=== PATIENT | female | born 1955 | race Caucasian/White ===

== ENCOUNTER → 2019-12-27 16:34 | Outpatient (CLI) | payer BC, SELFPAY ==
--- NOTE | ~2019-12-27 | XR_ITS ---
EXAMINATION: XR sacroiliac joints min 3V DATE: 12/27/2019 16:59 INDICATION: Sacroiliitis with left sacroiliac joint pain TECHNIQUE: AP and left and right oblique views of the sacroiliac joints were obtained. COMPARISON: Lumbar spine radiographs dated 01/22/2018 FINDINGS: Alignment is normal. No fracture. Sacral arches are intact. Bilateral sacroiliac joint spaces remain normal and symmetric. No erosions or subarticular sclerosis to suggest an inflammatory sacroiliitis. Osteitis pubis. Mild to moderate lower lumbar spondylosis. Mild bilateral hip osteoarthritis. IMPRESSION: 1. Normal bilateral sacroiliac joints. Reviewed, dictated and finalized at location A.
== END ==
PROVIDERS: Visit Provider Nurse Practitioner Family
DX: M46.1 Sacroiliitis, not elsewhere classified (principal)
CPT/HCPCS: 72202

== ENCOUNTER → 2021-02-24 13:55 | Outpatient (CLI) | payer BC, SELFPAY ==
--- NOTE | ~2021-02-24 | XR_ITS ---
XR knee LT 2V 02/24/2021 14:14 Indication: Left knee pain Procedure: 2 views left knee Comparison: 06/22/2017 Findings: There is mild-moderate osteoarthritis of the left knee. There is chondrocalcinosis. No frac ture, subluxation or dislocation. No significant joint effusion. Impression: 1: Mild-moderate osteoarthritis of the left knee. Reviewed, dictated and finalized at location B. Impression: 1: Mild-moderate osteoarthritis of the left knee.
--- NOTE | ~2021-02-24 | XR_ITS ---
XR knee RT 2V 02/24/2021 14:14 Indication: Right knee pain Procedure: 2 views right knee Comparison: 06/22/2017 Findings: There is moderate-severe tricompartment osteoarthritis of the right knee. No fracture, subl uxation or dislocation. No significant joint effusion. No foreign bodies. Impression: 1: Moderate-severe tricompartment osteoarthritis of the right knee. Reviewed, dictated and finalized at location B. Impression: 1: Moderate-severe tricompartment osteoarthritis of the right knee.
== END ==
PROVIDERS: PCP Internal Medicine; Visit Provider Nurse Practitioner Family
DX: M17.0 Bilateral primary osteoarthritis of knee (principal)
CPT/HCPCS: 73560

== ENCOUNTER → 2021-04-21 08:13 | Outpatient (CLI) | payer BC, SELFPAY ==
--- NOTE | ~2021-04-21 | MR_ITS ---
EXAMINATION: MR knee RT wo con DATE: 04/21/2021 12:08 INDICATION: Right knee pain. TECHNIQUE: Magnetic resonance imaging (MRI) of the right knee was performed without intravenous contr ast. Sequences included axial PD-weighted FS FSE, coronal PD-weighted FSE and PD-weighted FS FSE, sag ittal PD-weighted FSE, and sagittal T2-weighted FS FSE. COMPARISON: Right knee radiographs 02/24/2021 FINDINGS: Medial compartment: There is a complex tear involving posterior horn of medial meniscus. There is extensive partial thick ness cartilage loss of tibial condyle and femoral condyle. There is full-thickness cartilage loss of tibial condyle involving the central articular surface. There is full-thickness cartilage loss of fem oral condyle involving the central articular surface. Osteophytes are noted. Lateral compartment: Lateral meniscus is normal. There is partial-thickness cartilage loss of tibial condyle, deep at the central articular surface. There is partial-thickness cartilage loss of femoral condyle, deep at the central articular surface. Osteophytes are noted. Patellofemoral compartment: There is full-thickness cartilage loss of patellar lateral facet with mild subchondral edema signal i ntensity. There is full-thickness cartilage loss of lateral trochlea with mild subchondral edema-like marrow signal intensity. Osteophytes are noted. Ligaments and tendons: The anterior and posterior cruciate ligaments are normal. There are changes of prior sprains of media l collateral ligament and fibular collateral ligament characterized by increased signal intensity pro ximally. There is mild patellar tendinopathy. Fluid: There is a moderate-sized knee joint effusion. There is mild prepatellar and superficial infrapatella r bursitis. IMPRESSION: 1. Severe chondrosis of medial and patellofemoral compartments and moderate chondrosis of lateral com partment. 2. Tear of medial meniscus. 3. Moderate-sized knee joint effusion. Reviewed, dictated and finalized at location A. 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 Severe chondrosis of medial and patellofemoral compartments and moderate cho ndrosis of lateral compartment. 2. Tear of medial meniscus. 3. Moderate-sized knee joint effusion.
--- NOTE | ~2021-04-21 | MR_ITS ---
EXAMINATION: MR knee LT wo con DATE: 04/21/2021 12:17 INDICATION: Left knee pain. TECHNIQUE: Magnetic resonance imaging (MRI) of the left knee was performed without intravenous contra st. Sequences included axial PD-weighted FS FSE, coronal PD-weighted FSE and PD-weighted FS FSE, sagi ttal PD-weighted FSE, and sagittal T2-weighted FS FSE. COMPARISON: Left knee radiographs 02/24/2021 FINDINGS: Medial compartment: Medial meniscus is normal. There is shallow partial-thickness cartilage loss of tibial condyle, worst at the central articular surface. There is partial-thickness cartilage loss of femoral condyle, deep at the central articular surface. Marginal osteophytes are noted. Lateral compartment: Lateral meniscus is normal. There is shallow partial-thickness cartilage loss of tibial condyle. Ther e is partial-thickness cartilage loss of femoral condyle, deep at the central articular surface. Blaire inal osteophytes are noted. Patellofemoral compartment: There is full-thickness cartilage loss of patellar median ridge and lateral facet and partial thickne ss cartilage loss of medial facet. There is full-thickness cartilage loss of lateral trochlea with co rtical remodeling. Osteophytes are noted. Ligaments and tendons: The anterior and posterior cruciate ligaments are normal. Medial collateral ligament and lateral jah ateral ligament complex are normal. There is mild patellar tendinopathy. Fluid: There is a small knee joint effusion. There is mild prepatellar and superficial infrapatellar bursiti s. IMPRESSION: 1. Severe chondrosis of patellofemoral compartment and moderate chondrosis of medial and lateral comp artments. 2. Small knee joint effusion. Reviewed, dictated and finalized at location A. 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 Severe chondrosis of patellofemoral compartment and moderate chondrosis of m edial and lateral compartments. 2. Small knee joint effusion.
== END ==
PROVIDERS: PCP Internal Medicine; Visit Provider Nurse Practitioner Family
DX: M25.462 Effusion, left knee (principal); S83.241A Other tear of medial meniscus, current injury, right knee, initial encounter
CPT/HCPCS: 73721

== ENCOUNTER 2022-09-06 07:10 | Outpatient (CLI) | payer BC, MEDICARE, SELFPAY ==
--- NOTE | ~2022-09-06 | MR_ITS ---
EXAMINATION: MR lumbar spine wo con DATE: 09/06/2022 07:42 INDICATION: Low back pain radiating down the left leg. Lumbar radiculopathy. TECHNIQUE: Magnetic resonance imaging (MRI) of the lumbar spine was performed without intravenous con trast. Sequences included sagittal T2-weighted FSE, sagittal T2-weighted FS FSE, sagittal T1-weighted FSE, and axial T2-weighted FSE. COMPARISON: Lumbar spine radiographs 01/22/18 FINDINGS: There is 5 mm anterolisthesis of L4 on L5. Vertebral body heights are normal. There is mild ly decreased disc height at L2-L3, L3-L4, and L5-S1. There is ligamentum flavum hypertrophy at the di sc levels from L2-L3 through L4-L5. The distal spinal cord signal intensity is normal. The conus medu llaris is at L1. The following disc levels are specifically discussed: L1-L2: There is a right central protrusion. There is mild bilateral facet joint osteoarthritis. There is no neural foraminal stenosis. There is mild central canal stenosis. L2-L3: The disc is bulging and has an annular fissure. There is severe bilateral facet joint osteoart hritis. There is mild bilateral neural foraminal stenosis. There is mild central canal stenosis. L3-L4: The disc is bulging and has an annular fissure. There is severe bilateral facet joint osteoart hritis. There is moderate bilateral neural foraminal stenosis. There is mild central canal stenosis. L4-L5: The disc is bulging and has an annular fissure. There is severe bilateral facet joint osteoart hritis. There is moderate bilateral neural foraminal stenosis. There is severe central canal stenosis . L5-S1: The disc is bulging and has an annular fissure. There is moderate bilateral facet joint osteoa rthritis. There is mild bilateral neural foraminal stenosis. There is mild central canal stenosis. IMPRESSION: 1. Severe lumbar spondylosis. Reviewed, dictated and finalized at location A.
== END 2022-09-06 07:11 ==
LOC: MICIMG 07:12
PROVIDERS: PCP Internal Medicine; Visit Provider Nurse Practitioner Family
DX: M47.26 Other spondylosis with radiculopathy, lumbar region (principal)
CPT/HCPCS: 72148

== ENCOUNTER 2024-01-22 11:34 | Outpatient (CLI) | payer MEDICARE, BC, SELFPAY ==
--- NOTE | ~2024-01-22 | XR_ITS ---
Left Shoulder Technique: AP and axillary views were obtained. Clinical History: Pain Findings: No fracture or dislocation is seen. Osseous alignment is anatomic. The glenohumeral joint i s intact. There is mild to moderate AC joint degenerative change. There is mild amorphous calcificati on at the rotator cuff region. Impression: [id number] AC joint degenerative change. Mild amorphous calcification of the rotator cuff. This could reflect calcific tendinitis or degenerat deborah/post traumatic change. Reviewed, dictated and finalized at location . Impression: [id number] AC joint degenerative change. Mild amorphous calcification of the rotator cuff. This could reflect calcific t endinitis or degenerative/post traumatic change.
== END 2024-01-22 11:35 | disposition home or self-care (01) ==
PROVIDERS: PCP Internal Medicine; Visit Provider Nurse Practitioner Family
DX: M19.012 Primary osteoarthritis, left shoulder (principal)
CPT/HCPCS: 73030

== ENCOUNTER 2024-02-28 09:52 | Outpatient (CLI) | payer MEDICARE, BC, SELFPAY ==
--- NOTE | ~2024-02-28 | XR_ITS ---
EXAMINATION: XR chest 2V 02/28/2024 10:12 INDICATION: Shortness of breath PROCEDURE: 2 view chest COMPARISON: No prior studies for comparison. FINDINGS: The lungs are clear. There are calcified right hilar lymph nodes as well as right parenchym al nodules, consistent with chronic granulomatous disease. The cardiomediastinal silhouette is within normal limits. There are no pleural effusions. There is no pneumothorax suspected. IMPRESSION: 1: NO ACUTE CARDIOPULMONARY DISEASE. Reviewed, dictated and finalized at location B.
== END 2024-02-28 09:53 | disposition home or self-care (01) ==
PROVIDERS: PCP Internal Medicine; Visit Provider Internal Medicine
DX: R06.02 Shortness of breath (principal)
CPT/HCPCS: 71046

== ENCOUNTER 2024-08-28 10:16 | Outpatient (CLI) | payer MEDICARE, BC, SELFPAY ==
--- NOTE | ~2024-08-28 | XR_ITS ---
Right Knee Technique: AP and lateral views were obtained. Clinical History: Pain Findings: No fracture or dislocation is seen. Osseous alignment is anatomic. Joint advanced tricompar tmental osteoarthritis present.. Soft tissues are unremarkable. No joint effusion is seen. Impression: Advanced tricompartmental osteoarthritis. Reviewed, dictated and finalized at location . Impression: Advanced tricompartmental osteoarthritis.
== END 2024-08-28 10:17 | disposition home or self-care (01) ==
LOC: MICIMG 10:18
PROVIDERS: PCP Internal Medicine; Visit Provider Nurse Practitioner Family
DX: M17.11 Unilateral primary osteoarthritis, right knee (principal)
CPT/HCPCS: 73560

== ENCOUNTER 2024-10-08 13:36 | Emergency (ER) | payer MEDICARE, BC, SELFPAY ==
[2024-10-08 13:37] VITALS: BP 143/70; PULSE 80; RESP 16; TEMP 36.4; O2SAT 100
--- OUTSIDE RECORDS SUMMARY | 2024-10-08 13:43 | XMS_ITS | Referral Summary ---
Author Organization [facility] [address] [facility] Address [address] [place] [address] Care Team Providers Care [employer] Senior Manager Name Role Phone Eligio Rutledge MD Primary Care Provider Allergies Active Allergy Reactions Criticality Noted Date Comments Budesonide-Formoterol Anaphylaxis High 10/04/2013 Tetracycline Rash Medium Medications albuterol HFA (PROVENTIL HFA,VENTOLIN HFA,PROAIR HFA) 90 mcg/actuation inhaler Inhale 2 puffs every 4 (four) hours as needed for wheezing or shortness of breath 11/01/19 14 Active fluticasone propion-salmetero L (ADVAIR DISKUS) 500-50 mcg/dose diskus inhalerIndication s:Maintenance Therapy for Asthma Inhale 1 puff 2 (two) times a day Rinse mouth with water after use. Do not swallow. Active glipiZIDE (GLUCOTROL) 5 mg tabletIndications :type 2 diabetes mellitus Take 5 mg by mouth 2 (two) times a day before breakfast and lunch Active losartan (COZAAR) 50 mg tabletIndications :hypertension Take 50 mg by mouth nightly Active atorvastatin (LIPITOR) 10 mg tabletIndications :hyperlipidemia Take 10 mg by mouth 3 (three) times a week Active magnesium oxide (MAG-OX) 250 mg (150.8 mg elemental) tabletIndications :hypomagnesemia Take 250 mg by mouth nightly Active gabapentin (NEURONTIN) 600 mg tabletIndications :Neuropathic Pain Take 600 mg by mouth nightly Active albuterol 2.5 mg /3 mL (0.083 %) nebulizer solution Take 2.5 mg by nebulization every 4 (four) hours as needed for wheezing or shortness of breath 11/01/19 14 Active multivitamin capsuleIndication s:Vitamin Deficiency Prevention Take 1 capsule by mouth daily before breakfast Active cholecalciferol (Vitamin D3) 4,000 unit capsuleIndication s:Vitamin D Deficiency Take 4,000 Units by mouth daily before breakfast Active tiotropium bromide (SPIRIVA RESPIMAT) 2.5 mcg/actuation inhalerIndication s:Maintenance Therapy for Asthma Inhale 5 mcg 2 (two) times a day Active to-vx-QF-vit B-mpkac-ilii-zeax (Ocuvite Eye Plus Multi) 200-15-150 mcg tablet Take 1 tablet by mouth daily before breakfast 11/01/19 14 Active metFORMIN (GLUCOPHAGE) 1,000 mg tabletIndications :type 2 diabetes mellitus Take 1,000 mg by mouth 2 (two) times a day with meals 11/01/19 14 Active exenatide ER microspheres (Bydureon BCise) 2 mg/0.85 mL auto-injectorIndi cations:type 2 diabetes mellitus Inject 2 mg under the skin once a week Monday Active naproxen sodium 220 mg capsule Take 220 mg by mouth 2 (two) times a day as needed (pain) Active ondansetron ODT (ZOFRAN-ODT) 4 mg disintegrating tablet Take 1 tablet (4 mg total) by mouth every 8 (eight) hours as needed for nausea or vomiting 20 tablet 12/22/19 21 Active amoxicillin-clavu lanate (AUGMENTIN) 875-125 mg per tablet amoxicillin 875 mg-potassium clavulanate 125 mg tablet Active azithromycin (ZITHROMAX) 250 mg tablet azithromycin 250 mg tablet Active calcipotriene-bet amethasone (TACLONEX) ointment calcipotriene-beta methasone 0.005 %-0.064 % topical ointment Active cefdinir (OMNICEF) 300 mg capsule cefdinir 300 mg capsule Active cefuroxime (CEFTIN) 250 mg tablet cefuroxime axetil 250 mg tablet Active ciprofloxacin (CIPRO) 500 mg tablet ciprofloxacin 500 mg tablet Active cyclobenzaprine (FLEXERIL) 10 mg tablet cyclobenzaprine 10 mg tablet Active cycloSPORINE (Restasis) 0.05 % ophthalmic emulsion Restasis 0.05 % eye drops in a dropperette Active influenza quadrivalent (FLULAVAL,FLUARIX ) 60 mcg (15 mcg x 4)/0.5 mL syringe Afluria Quad (PF) 60 mcg (15 mcg x 4)/0.5 mL IM syringe ADM 0.5ML IM UTD Active fluocinonide 0.1 % cream fluocinonide 0.1 % topical cream Active hylan g-f 20 (Synvisc-One) 48 mg/6 mL syringe Synvisc-One 48 mg/6 mL intra-articular syringe Active naproxen (NAPROSYN) 500 mg tablet naproxen 500 mg tablet Active neomycin-polymyxi n-HC (CORTISPORIN) otic solution neomycin-polymyxin -hydrocort 3.5 mg/mL-10,000 unit/mL-1 % ear solution Active nitrofurantoin monohydrate (MACROBID) 100 mg capsule nitrofurantoin monohydrate/macroc rystals 100 mg capsule TAKE ONE CAPSULE TWICE DAILY FOR 7 DAYS. Active ondansetron (ZOFRAN) 4 mg tablet ondansetron HCl 4 mg tablet Active oxyCODONE-acetami nophen (PERCOCET) 5-325 mg per tablet oxycodone-acetamin ophen 5 mg-325 mg tablet Active predniSONE (DELTASONE) 10 mg tablet prednisone 10 mg tablet Active Active Problems Problem Noted Date Diagnosed Date Sebaceous cyst of breast, left 12/01/2020 Skin infection 12/01/2020 Social History Tobacco Use Types Packs/Day Years Used Date Smoking Tobacco: Former Cigarettes Q uit: 1994 Smokeless Tobacco: Never AUDIT-C Answer Date Recorded Q1: How often do you have a drink containing alc ohol? Monthly or less 12/21/2020 Q2: How many drinks containi ng alcohol do you have on a typical day when you are drinking? 1 or 2 12/21/2020 Q3: How often do you have si x or more drinks on one occasion? 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 Gender Identity Female 11/24/2020 9:11 AM CDT Sexual Orientation Straight 11/24/2020 9: 11 AM CDT Last Filed Vital Signs Vital Sign Reading Time Taken Comments Blood Pressure 140/68 12/21/2020 3:00 PM CDT Pulse 83 12/21/2020 3:00 PM CDT Temperature 36.3 C (97.3 F) 12/21/2020 2:30 PM CDT Respiratory Rate 17 12/21/2020 3:00 PM CDT Oxygen Saturation 92% 12/21/2020 3:00 PM CDT Inhaled Oxygen Concentration - - Weight 117.9 kg (259 lb 14.8 oz) 12/25/2020 8:17 AM CDT Height 170.2 cm (5' 7) 12/25/2020 8:17 AM CDT Body Mass Index 40.71 12/25/2020 8:17 AM CDT Plan of Treatment Not on file Procedures Procedure Name Priority Date/Time Associated Diagnosis Comments SCREENING MAMMOGRAM BILATERAL W YWA Schedule Routine, Read Routine (OP Routine) 06/05/2024 11:38 AM BAR PORTER Screening mammogram, encounter for from Last 3 Months or Most Recently Relevant to Health Maintenance Results * Screening Mammogram Bilateral W Yaw (06/05/2024 11:38 AM BAR PORTER) Anatomical Region Laterality Modality Breast Bilateral Mammography Narrative 06/05/2024 12:08 PM BAR PORTER Mammogram Technique: Bilateral Digital Breast Tomosynthesis, Bilateral C-view 2D Screening mammogram. Views obtained: bilateral craniocaudal and bilateral mediolateral oblique. Computer Aided Detection was performed. Mammogram Findings: The present examination has been compared to prior imaging studies performed at [facility] on 10/15/2020, 12/13/2021 and 04/03/2023. The breasts are almost entirely fatty. There is no suspicious abnormality in either breast. Impression: There is no mammographic evidence of malignancy. Annual screening mammography is recommended. OVERALL FINAL ASSESSMENT: BI-RADS CATEGORY 1: Negative. Procedure Note Jojo Dean MD - 06/05/2024 Mammogram Technique: Bilateral Digital Breast Tomosynthesis, Bilateral C-view 2D Screening mammogram. Views obtained: bilateral craniocaudal and bilateral mediolateral oblique. Computer Aided Detection was performed. Mammogram Findings: The present examination has been compared to prior imaging studies performed at [facility] on 10/15/2020, 12/13/2021 and 04/03/2023. The breasts are almost entirely fatty. There is no suspicious abnormality in either breast. Impression: There is no mammographic evidence of malignancy. Annual screening mammography is recommended. OVERALL FINAL ASSESSMENT: BI-RADS CATEGORY 1: Negative. 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
--- OUTSIDE RECORDS SUMMARY | 2024-10-08 13:43 | XMS_ITS | Clinical Summary ---
Author Organization [facility] [employer] Address [address] [place] [address] Care Team Providers Care Import Coordination And Production Head Name Role Phone Benita Maxwell MD Unavailable [phone] Eligio Rutledge MD Primary Care Provider [phone] Source Comments [facility],non-owned Affiliates and Associated Physician Practices is amultiple site organization consisting of ambulatory clinics and hospital sitesin [place], [place], [place] and [place]. This disclosure is being madepursuant to the Care Everywhere program and may not contain all information available regarding this patient. Last updated 18.[facility] [employer] Allergies Active Allergy Reactions Criticality Noted Date Comments Budesonide-Formoterol Fumarate 03/22 Tetracycline 03/22/2012 Medications * Be aware that medications may not be up to date on this document. Alwaysverify current medications with the patient. fluticasone-salme terol (ADVAIR DISKUS) 500-50 MCG/DOSE inhalerIndication s:Type II or unspecified type diabetes mellitus without mention of complication, uncontrolled Inhale 1 Puff by mouth 2 times daily. Active pirbuterol (MAXAIR AUTOHALER) 200 MCG/INH inhalerIndication s:Type II or unspecified type diabetes mellitus without mention of complication, uncontrolled Inhale 2 Puffs by mouth every 6 hours as needed. Active SIMVASTATIN POIndications:Typ e II or unspecified type diabetes mellitus without mention of complication, uncontrolled Take by mouth. Ac tive losartan (COZAAR) 25 MG tablet Take 1 Tab by mouth once daily. 90 Tab 1 3 Active glipiZIDE (GLUCOTROL) 5 MG tabletIndications :Type II or unspecified type diabetes mellitus without mention of complication, not stated as uncontrolled (HCC) Take 1 Tab by mouth 2 times daily,before breakfast and supper. 180 Tab 3 3 Active ASCENSIA CONTOUR TEST STRIP test strip USE TO TEST BLOOD SUGAR ONE TIME DAILY 100 Strip 0 3 Active Active Problems Problem Noted Date Diagnosed Date Hypercholesteremia 06/20/2012 HTN (hypertension) 06/20/2012 Type II or unspecified type diabetes mellitus without mention of complication, uncontrolled 03/22/2012 Family History Medical History Relation Name Comments Diabetes Brother Diabetes Mother [place]<55(male) Neg Hx [place]<65(female) Neg Hx Relation Name Status Comments Brother Mother Social History Tobacco Use Types Packs/Day Years Used Date Smoking Tobacco: Never Smokeless Tobacco: Never Alcohol Use Standard Drinks/Week Comments No 0 (1 standard drink = 0.6 oz pur e alcohol) Comments No Sex and Gender Information Value Date Recorded Sex Assigned at Not on file 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 Gender Identity Not on file Sexual Orientation Not on file Last Filed Vital Signs Vital Sign Reading Time Taken Comments Blood Pressure 134/82 12/25/2012 8:17 AM CDT Pulse 68 12/25/2012 8:17 AM CDT Temperature - - Respiratory Rate 17 12/25/2012 8:17 AM CDT Oxygen Saturation 97% 12/25/2012 8:17 AM CDT Inhaled Oxygen Concentration - - Weight 128.4 kg (283 lb) 12/25/2012 8:17 AM CDT Height 168.9 cm (5' 6.5) 12/25/2012 8:17 AM CDT Body Mass Index 44.99 12/25/2012 8:17 AM CDT Plan of Treatment Health Maintenance Due Date Last Done Comments BONE DENSITY TESTING 1955 COLOGUARD (AGES 45-75) - COLON CA SCREENING 1956 COLON MONITORING 1956 COLONOSCOPY - COLON CA SCREENING 1956 CT COLONOGRAPHY - COLON CA SCREENING 1955 Colorectal Cancer Screening 1955 FIT - COLON CA SCREENING 1956 FLEX SIG - COLON CA SCREENING 1955 MAMMOGRAM 1956 HEPATITIS C SCREENING 08/23/1974 DTAP/TDAP/TD VACCINES (1 - Tdap) 08/28/1975 PNEUMOCOCCAL VACCINE 50+ (1 of 1 - PCV) 2006 ZOSTER VACCINE (1 of 2) 2006 DIABETES-HGB A1C 06/27/2013 12/25/2012, , 07/02/2012, Additional history exists DIABETES-SERUM CREATININE 09/25/20132012, 07/02/2012, 03/23/2012 DIABETES-FOOT EXAM WITH MONOFILAMENT 12/25/2013 12/25/2012, 09/25/2012, 06/20/2012 Respiratory Syncytial Virus (RSV) Vaccine Pt: or over 60 yrs (1 - Risk 60-74 years 1-dose series) 2016 COVID-19 VACCINE ( - season) 2024 DEPRESSION SCREENING 05/08/2024 DIABETES - URINE PROTEIN SCREENING 05/08/2024 03/23/2012 INFLUENZA VACCINE (Season Ended) 2025 HEPATITIS B VACCINE Aged Out No longe r eligible based on patient's age to complete this topic HIB VACCINE Aged Out No longer eligi ble based on patient's age to complete this topic HPV VACCINE Aged Out No longer eligi ble based on patient's age to complete this topic MENINGOCOCCAL (Group B) VACCINE SHARED DECISION-MAKING Aged Out No longer eligible based on patient's age to complete this topic MENINGOCOCCAL GROUPS A/C/Y/W VACCINE Aged Out No longer eligible based on patient's age to complete this topic Procedures Procedure Name Priority Date/Time Associated Diagnosis Comments HEMOGLOBIN A1C Routine 12/25/2012 8:48 AM CDT Type II or unspecified type diabetes mellitus without mention of complication, not stated as uncontrolled COMPREHENSIVE METABOLIC PANEL Routine 09/25/2012 9:15 AM CDT Type Ii Or Unspecified Type Diabetes Mellitus Without Mention Of Complication, Uncontrolled MICROALB/CREAT RATIO URINE RANDOM PANEL Routine 03/23/2012 9:43 AM VARITYPE OPERATOR Type II or unspecified type diabetes mellitus without mention of complication, uncontrolled from Last 3 Months or Most Recently Relevant to Health Maintenance Results * (ABNORMAL) HEMOGLOBIN A1C (12/25/2012 8:48 AM CDT) Hemoglobin A1c 6.7(H) 4.8 - 5.6 % [facility] ACCOUNT BILL Comment: . Increased risk for diabetes: 5.7 - 6.4 Diabetes: >6.4 Glycemic control for adults with diabetes: <7.0 Whole blood specimen (specimen) BLOOD SPECIMEN / Unknown 12/25/2012 8:48 AM CDT 12/25/2012 12:49 PM CDT Narrative Resulting Agency Comment [facility] [address] [facility] [id number] Benita Maxwell MD LAB - CHEMISTRY ORDERABLES nal Result [facility] ACCOUNT BILL [address] [place] [address] * (ABNORMAL) COMPREHENSIVE METABOLIC PANEL (09/25/2012 9:15 AM CDT) Glucose 124(H) 65 - 99 mg/dL [facility] ACCOUNT BILL BUN 15 6 - 24 mg/dL [facility] ACCOUNT BILL Creatinine 0.65 0.57 - 1.00 mg/dL [facility] ACCOUNT BILL eGFR by MDRD 100 >59 mL/min/1.7 3 [facility] ACCOUNT BILL eGFR by MDRD 115 >59 mL/min/1.7 3 [facility] ACCOUNT BILL BUN/Creatinine Ratio 23 9 - 23 [facility] ACCOUNT BILL Sodium 140 134 - 144 mmol/L [facility] ACCOUNT BILL Potassium 4.2 3.5 - 5.2 mmol/L [facility] ACCOUNT BILL Chloride 100 97 - 108 mmol/L [facility] ACCOUNT BILL CO2 23 20 - 32 mmol/L [facility] ACCOUNT BILL Calcium 9.7 8.7 - 10.2 mg/dL [facility] ACCOUNT BILL Protein Total 7.4 6.0 - 8.5 g/dL [facility] ACCOUNT BILL Albumin 4.5 3.5 - 5.5 g/dL [facility] ACCOUNT BILL Globulin Total 2.9 1.5 - 4.5 g/dL [facility] ACCOUNT BILL Albumin/Globulin Ratio 1.6 1.1 - 2.5 [facility] ACCOUNT BILL Bilirubin Total 0.3 0.0 - 1.2 mg/dL [facility] ACCOUNT BILL Alkaline Phosphatase 60 25 - 150 IU/L [facility] ACCOUNT BILL AST 23 0 - 40 IU/L [facility] ACCOUNT BILL ALT 26 0 - 32 IU/L [facility] ACCOUNT BILL Blood specimen (specimen) BLOOD SPECIMEN / Unknown 09/25/2012 9:15 AM CDT 09/25/2012 12:52 PM CDT Narrative Resulting Agency Comment [facility] [address] [facility] [phone] Benita Maxwell MD LAB - CHEMISTRY ORDERABLES Fi nal Result Performing Organization Address City/[facility] Co de Phone Number [facility] ACCOUNT BILL [address] [place] [address] * (ABNORMAL) MICROALB/CREAT RATIO URINE RANDOM PANEL (03/23/2012 9:43 AM VARITYPE OPERATOR) Creatinine 24 Hour Urine 81.3 15.0 - 278.0 mg/dL [facility] ACCOUNT BILL Microalbumin Urine 136.3(H) 0.0 - 17.0 ug/mL [facility] ACCOUNT BILL Microalbumin/Crea tinine Ratio 167.7(H) 0.0 - 30.0 mg/g creat [facility] ACCOUNT BILL Urine specimen (specimen) URINE SPECIMEN OBTAINED BY CLEAN CATCH PROCEDURE / Unknown 03/23/2012 9:43 AM VARITYPE OPERATOR 03/23/2012 12:46 PM VARITYPE OPERATOR Narrative Resulting Agency Comment [facility] [address] [facility] [phone] Benita Maxwell MD LAB - URINE CHEMISTRY ORDERAB LES Final Result Performing Organization Address City/[facility]/ZIP Co de Phone Number [facility] ACCOUNT BILL [address] [place] [address] from Last 3 Months or Most Recently Relevant to Health Maintenance Care Teams Import Coordination And Production Head Relationship Specialty Start Date End Date Eligio Rutledge MD [address] [place] [phone] PCP - General Internal Medicine 03/22/12 Benita Maxwell MD [address] [phone] Endocrinology 03/21/12
--- OUTSIDE RECORDS SUMMARY | 2024-10-08 13:43 | XMS_ITS | Clinical Summary ---
Author Organization [facility] [address] [facility] Address [address] [place] [address] Care Team Providers Care Registry Rn Name Role Phone Eligio Rutledge MD Primary [...] mcg 2 (two) times a day Active uv-ag-HF-vit R-abmpz-oljl-zeax (Ocuvite Eye Plus Multi) 200-15-150 mcg tablet [...] of breast, left 12/01/2020 Skin infection 12/01/2020 Surgical History Surgery Date Site/Laterality Comments HYSTERECTOMY 05/08/1988 - 05/07/1989 OTHER SURGICAL HISTORY 05/08/1995 - 05/07/1996 ovary removed OTHER SURGICAL HISTORY 05/08/1989 - 05/07/1990 caminectomy & fusion C-5-6-7 MENISCUS SURGERY 05/08/2011 - 05/07/2012 CARPAL TUNNEL RELEASE 05/08/2011 - 05/07/2012 Right carpal tiunnel & thumb repair, wrist cyst TONSILLECTOMY as a child CARPAL TUNNEL RELEASE 05/08/2018 - 05/07/2019 Left Medical History Medical History Date Comments Hypertension Type 2 diabetes mellitus (HCC) Arthritis Sleep apnea Motion sickness PONV (postoperative nausea and vomiting) Asthma Family History Medical History Relation Name Comments Lung cancer Brother /Jm Father's Brother Colon cancer Mother Lung cancer Mother Family history of lung cancer - (Added by TW Conv) Lung disease Mother gall bladder Mother Breast cancer Sister Colon cancer Sister Relation Name Status Comments Brother Father's Brother Mother Sister Social History Tobacco Use Types Packs/Day Years [...] on file 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 Gender Identity Female 11/24/2020 9:11 AM CDT Sexual Orientation Straight 11/24/2020 9: 11 AM CDT Obstetrics History Comments Menopause : 1988 Last Filed Vital Signs Vital Sign Reading [...] 12/25/2020 8:17 AM CDT Plan of Treatment Health Maintenance Due Date Last Done Comments Colon Cancer Screening-Colonoscopy 1955 Depression Screening 1955 Hepatitis C Screening 1955 DTaP/Tdap/Td Vaccine (1 - Tdap) 08/28/1967 Hepatitis B Screening 1974 Zoster Vaccine (1 of 2) 2006 Well Visit 65+ 2021 Fall Risk Assessment 12/21/2021 12/21/2020 Influenza Vaccine (Season Ended) 2025 02/26/2023, 03/02/2021, 02/14/2020, Additional history exists Pneumococcal vaccine 65+ (3 of 3 - PCV20 or PCV21) 02/20/2025 02/21/2020, 03/27/2014 Breast Cancer Screening-Mammogram 06/05/2025 06/05/2024, 04/03/2023, 12/13/2021, Additional history exists Osteoporosis Screening-Bone Density Scan 03/06/2026 03/06/2024 Procedures Procedure Name Priority Date/Time Associated Diagnosis Comments SCREENING MAMMOGRAM BILATERAL W YAW Schedule Routine, Read Routine (OP Routine) 06/05/2024 11:38 AM TOOL SUPERVISOR Screening mammogram, encounter for from Last 3 Months or Most Recently Relevant to Health Maintenance Results * Screening Mammogram Bilateral W Yaw (06/05/2024 11:38 AM TOOL SUPERVISOR) Anatomical Region Laterality Modality Breast Bilateral Mammography Narrative 06/05/2024 12:08 PM TOOL SUPERVISOR Mammogram Technique: Bilateral Digital Breast Tomosynthesis, Bilateral C-view 2D Screening mammogram. Views obtained: bilateral craniocaudal and bilateral mediolateral oblique. Computer Aided Detection was performed. Mammogram Findings: The present examination has been compared to prior imaging studies performed at [facility] on 10/15/2020, 12/13/2021 and 04/03/2023. The [...] compared to prior imaging studies performed at [facility] on 10/15/2020, 12/13/2021 and 04/03/2023. The breasts are almost entirely fatty. There is no suspicious abnormality in either breast. Impression: There is no mammographic evidence of malignancy. Annual screening mammography is recommended. OVERALL FINAL ASSESSMENT: BI-RADS CATEGORY 1: Negative. us Self Screening Mammogram IMG MAMMO PROCEDURES Fi nal Result from Last 3 Months or Most Recently Relevant to Health Maintenance Insurance MEDICARE [facility] OOS COUNTS INCLUDE 234 BEDS AT THE [facility] ACCESS BLUE ACCESS OOS MEDICARE BLUE TRADITIONAL OOS Care Teams Registry Rn Relationship Specialty Start Date End Date Eligio Rutledge MD PCP - General 05/06/17
--- OUTSIDE RECORDS SUMMARY | 2024-10-08 13:43 | XMS_ITS | Data Portability ---
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 [employer]vel Name Role Phone THOMAS RUTLEDGE Primary Care Provider Assessment Encounter Date Assessment Date Assessment LastModified by Organization Details LastModified Time 02/27/2024 02/27/2024 chest x-ray Levaquin 500 daily times a week side effects discussed prednisone 40 mg daily x5 days then 20 mg daily x5 days if she gets worse she needs to go to the ER pulse ox today 97% [email or web address] Not available 02/27/2024 22:44:17 03/22/2024 03/22/2024 EKG shows a norm al sinus rhythm with some poor R-wave progression obtain CT angiogram chest obtain echo obtain Lexiscan Cardiolite stress test obtain CBC CMP further recommendations dictated by results of testing [email or web address] Not available 03/22/2024 23:24:44 05/21/2024 05/21/2024 I query whether she has cervical radiculopathy I am going to give her a Medrol Dosepak she is going to report back after that is done [email or web address] Not available 05/25/2024 17:16:11 05/29/2024 05/29/2024 slowly get back into her exercise program and if she develops any more that shortness of breath she will call. Continue healthy lifestyle care instructions. We do give her some ondansetron for some mild nausea she gets with the 1st day or 2 after her GLP 1 injection. Continue current therapy follow up 4 months Not available 05/29/2024 21:03:41 09/25/2024 09/25/2024 Blood work order ed continue current therapy Not available 09/25/2024 22:33:00 Plan of Treatment Reminders Order Date Submit Date Provider Last Modified By Organization Details Last Modified Time Details Appointments ANY 15 2024 03:00P Gigi Rutledge MD Not available Not available Not available Lab HbA1c (hemoglob in A1c), blood 2024 025 [facility], [address], [place], [address], 09/26/2024 11:12:07 albumin/c reatinine , mass ratio, urine 2024 025 [facility], [address], [place], [address], 09/26/2024 11:12:04 CBC w/ auto diff 2024 025 [facility], [address], [place], [address], 09/26/2024 11:12:08 CMP, serum or plasma 2024 025 [facility], [address], [place], [address], 09/26/2024 11:12:06 lipid panel, serum 2024 025 [facility], [address], [place], [address], 09/26/2024 11:12:05 Referral None recorded. Procedures lexiscan cardiolit e stress test (PROC) 2023 024 [facility], [address], [address], [place], [address], 04/01/2024 15:48:21 Surgeries None recorded. Imaging US, echocardi ogram 2023 024 [facility], [address], [address], [place], [address], 04/02/2024 10:55:35 CT, angiogram , chest, w/ contrast 2023 024 [facility] (Outpatient Orders), [address], [place], [address], 03/22/2024 16:43:46 electroca rdiogram 2023 024 [email or web address] In-Office Order, Internal Use Only DO Not Attach Compendium DO Not Attach Compendium, Do Not Delete/merge, [id number] 03/22/2024 13:08:36 XR, chest 2023 024 [email or web address] [facility], [address] [address], [place], [address], 02/28/2024 20:54:12 Medication Orders ondansetr on HCl 4 mg tablet 2024 025 [email or web address] [facility]/Pharmacy #[id number], [address], [place], [address], 05/29/2024 17:11:38 Medrol (Roberto) 4 mg tablets in a dose pack 2024 025 [facility]/Pharmacy #[id number], [address], [place], [address], 05/29/2024 15:58:48 levofloxa january 500 mg tablet 2023 024 [email or web address] [facility]/Pharmacy #[id number], [address], [place], [address], 04/19/2024 12:35:19 Patient TargetsNo targets recorded. Patient Instructions Encounter Date Encounter Id Patient Instructions Last Modified By Organization Details Last Modified Time 02/27/2024 [id number] A healthy lifestyle: care instructions [email or web address] Not available 02/27/2024 16:41:29 05/21/2024 [id number] A healthy lifestyle: care instructions [email or web address] Not available 05/21/2024 11:42:18 05/29/2024 [id number] A healthy lifestyle: care instructions [email or web address] Not available 05/29/2024 17:11:38 09/25/2024 [id number] A healthy lifestyle: care instructions Not available 09/25/2024 15:15:58 Reason for Referral None Reported. Results Created Date Observation Date Name Description Value Unit Range Abnormal Flag Note LastModifiedBy Organization Detail LastModifiedTime 03/22/20 24 03/22/2024 Creat inine [Mass /volu me] in Blood creatinine creat inine Not Available Not Available 06/24/2024 10:12:43 03/26/20 24 03/27/2024 COMP. METAB OLIC PANEL (14) glucose 95 mg/dL 70-99 Not Available [facility] ([facility]) [address] [place], [address], 03/27/2024 08:27:38 03/26/20 24 03/27/2024 COMP. METAB OLIC PANEL (14) BUN 18 mg/dL 8-27 Not Available [facility] ([facility]) [address] [place], [address], 03/27/2024 08:27:38 03/26/20 24 03/27/2024 COMP. METAB OLIC PANEL (14) creatinine 0.65 mg/dL 0.57-1 .00 Not Available [facility] ([facility]) [address] [place], [address], 03/27/2024 08:27:38 03/26/20 24 03/27/2024 COMP. METAB OLIC PANEL (14) eGFR 96 mL/mi n/1.7 3 >59 Not Available [facility] ([facility]) [address] [place], [address], 03/27/2024 08:27:38 03/26/20 24 03/27/2024 COMP. METAB OLIC PANEL (14) BUN/creatini ne ratio 28 12-28 Not Available [facility] ([facility]) [address] [facility], [place], [address], 03/27/2024 08:27:38 03/26/20 24 03/27/2024 COMP. METAB OLIC PANEL (14) sodium 141 mmol/ L 134-14 4 Not Available [facility] ([facility]) [address] [facility] [place], [address], 03/27/2024 08:27:38 03/26/20 24 03/27/2024 COMP. METAB OLIC PANEL (14) potassium 4.5 mmol/ L 3.5-5. 2 Not Available [facility] ([facility]) [address] [facility] [place], [address], 03/27/2024 08:27:38 03/26/20 24 03/27/2024 COMP. METAB OLIC PANEL (14) chloride 104 mmol/ L 96-106 Not Available [facility] ([facility]) [address] [facility] [place], [address], 03/27/2024 08:27:38 03/26/20 24 03/27/2024 COMP. METAB OLIC PANEL (14) carbon dioxide, total 25 mmol/ L 20-29 Not Available [facility] ([facility]) [address] [facility] [place], [address], 03/27/2024 08:27:38 03/26/20 24 03/27/2024 COMP. METAB OLIC PANEL (14) calcium 9.2 mg/dL 8.7-10 .3 Not Available [facility] ([facility]) [address] [facility] [place], [address], 03/27/2024 08:27:38 03/26/20 24 03/27/2024 COMP. METAB OLIC PANEL (14) protein, total 6.3 g/dL 6.0-8. 5 Not Available [facility] ([facility]) [address] [facility] [place], [address], 03/27/2024 08:27:38 03/26/20 24 03/27/2024 COMP. METAB OLIC PANEL (14) albumin 4.1 g/dL 3.9-4. 9 Not Available [facility] ([facility]) [address] [facility], [place], [address], 03/27/2024 08:27:38 03/26/20 24 03/27/2024 COMP. METAB OLIC PANEL (14) globulin, total 2.2 g/dL 1.5-4. 5 Not Available [facility] ([facility]) [address] [facility], [place], [address], 03/27/2024 08:27:38 03/26/20 24 03/27/2024 COMP. METAB OLIC PANEL (14) bilirubin, total 0.2 mg/dL 0.0-1. 2 Not Available [facility] ([facility]) [address] [facility], [place], [address], 03/27/2024 08:27:38 03/26/20 24 03/27/2024 COMP. METAB OLIC PANEL (14) alkaline phosphatase 69 IU/L 44-121 Not Available [facility] ([facility]) [address] [facility], [place], [address], 03/27/2024 08:27:38 03/26/20 24 03/27/2024 COMP. METAB OLIC PANEL (14) AST (SGOT) 23 IU/L 0-40 Not Available [facility] ([facility]) [address] [facility], [place], [address], 03/27/2024 08:27:38 03/26/20 24 03/27/2024 COMP. METAB OLIC PANEL (14) ALT (SGPT) 16 IU/L 0-32 Not Available [facility] ([facility]) [address] [facility], [place], [address], 03/27/2024 08:27:38 03/26/20 24 03/27/2024 CBC WITH DIFFE RENTI AL/PL ATELE T WBC 6.6 x10e3 /uL 3.4-10 .8 Eff ectiv e Decem maged 2023 profi roe [id number] 5 WBC will be made* * non-o rdera ble as a stand -cookie e order code. Not Available [facility] ([facility]) [address] [facility], [place], [address], 03/27/2024 08:27:39 03/26/20 24 03/27/2024 CBC WITH DIFFE RENTI AL/PL ATELE T RBC 4.10 x10e6 /uL 3.77-5 .28 Not Available [facility] ([facility]) [address] [facility], [place], [address], 03/27/2024 08:27:39 03/26/20 24 03/27/2024 CBC WITH DIFFE RENTI AL/PL ATELE T hemoglobin 12.2 g/dL 11.1-1 5.9 Not Available [facility] ([facility]) [address] [facility], [place], [address], 03/27/2024 08:27:39 03/26/20 24 03/27/2024 CBC WITH DIFFE RENTI AL/PL ATELE T hematocrit 37.4 % 34.0-4 6.6 Not Available [facility] ([facility]) [address] [facility], [place], [address], 03/27/2024 08:27:39 03/26/20 24 03/27/2024 CBC WITH DIFFE RENTI AL/PL ATELE T MCV 91 fL 79-97 Not Available [facility] ([facility]) [address] [place], [address], 03/27/2024 08:27:39 03/26/20 24 03/27/2024 CBC WITH DIFFE RENTI AL/PL ATELE T MCH 29.8 pg 26.6-3 3.0 Not Available [facility] ([facility]) [address] [facility], [place], [address], 03/27/2024 08:27:39 03/26/20 24 03/27/2024 CBC WITH DIFFE RENTI AL/PL ATELE T MCHC 32.6 g/dL 31.5-3 5.7 Not Available [facility] ([facility]) [address] [facility], [place], [address], 03/27/2024 08:27:39 03/26/20 24 03/27/2024 CBC WITH DIFFE RENTI AL/PL ATELE T RDW 13.3 % 11.7-1 5.4 Not Available [facility] ([facility]) [address] [facility], [place], [address], 03/27/2024 08:27:39 03/26/20 24 03/27/2024 CBC WITH DIFFE RENTI AL/PL ATELE T platelets 220 x10e3 /uL 150-45 0 Not Available [facility] ([facility]) [address] [facility], [place], [address], 03/27/2024 08:27:39 03/26/20 24 03/27/2024 CBC WITH DIFFE RENTI AL/PL ATELE T neutrophils 69 % notest ab. Not Available [facility] ([facility]) [address] [facility], [place], [address], 03/27/2024 08:27:39 03/26/20 24 03/27/2024 CBC WITH DIFFE RENTI AL/PL ATELE T lymphs 18 % notest ab. Not Available [facility] ([facility]) [address] [facility], [place], [address], 03/27/2024 08:27:39 03/26/20 24 03/27/2024 CBC WITH DIFFE RENTI AL/PL ATELE T monocytes 10 % notest ab. Not Available [facility] ([facility]) [address] [facility], [place], [address], 03/27/2024 08:27:39 03/26/20 24 03/27/2024 CBC WITH DIFFE RENTI AL/PL ATELE T eos 2 % notest ab. Not Available [facility] ([facility]) [address] [place], [address], 03/27/2024 08:27:39 03/26/20 24 03/27/2024 CBC WITH DIFFE RENTI AL/PL ATELE T basos 1 % notest ab. Not Available [facility] ([facility]) [address] [place], [address], 03/27/2024 08:27:39 03/26/20 24 03/27/2024 CBC WITH DIFFE RENTI AL/PL ATELE T neutrophils (absolute) 4.5 x10e3 /uL 1.4-7. 0 Not Available [facility] ([facility]) [address] [place], [address], 03/27/2024 08:27:39 03/26/20 24 03/27/2024 CBC WITH DIFFE RENTI AL/PL ATELE T lymphs (absolute) 1.2 x10e3 /uL 0.7-3. 1 Not Available [facility] ([facility]) [address] [place], [address], 03/27/2024 08:27:39 03/26/20 24 03/27/2024 CBC WITH DIFFE RENTI AL/PL ATELE T monocytes(ab solute) 0.7 x10e3 /uL 0.1-0. 9 Not Available [facility] ([facility]) [address] [place], [address], 03/27/2024 08:27:39 03/26/20 24 03/27/2024 CBC WITH DIFFE RENTI AL/PL ATELE T eos (absolute) 0.1 x10e3 /uL 0.0-0. 4 Not Available [facility] ([facility]) [address] [place], [address], 03/27/2024 08:27:39 03/26/20 24 03/27/2024 CBC WITH DIFFE RENTI AL/PL ATELE T baso (absolute) 0.0 x10e3 /uL 0.0-0. 2 Not Available [facility] ([facility]) [address] [facility], [place], [address], 03/27/2024 08:27:39 03/26/20 24 03/27/2024 CBC WITH DIFFE RENTI AL/PL ATELE T immature granulocytes 0 % notest ab. Not Available [facility] ([facility]) [address] [facility], [place], [address], 03/27/2024 08:27:39 03/26/20 24 03/27/2024 CBC WITH DIFFE RENTI AL/PL ATELE T immature grans (abs) 0.0 x10e3 /uL 0.0-0. 1 Not Available [facility] ([facility]) [address] [place], [address], 03/27/2024 08:27:39 03/28/20 24 03/29/2024 TSH+F REE T4 TSH 2.020 uIU/m L 0.450- 4.500 Not Available [facility] ([facility]) [address] [place], [address], 03/29/2024 08:28:16 03/28/20 24 03/29/2024 TSH+F REE T4 T4,free(dire ct) 1.24 NG/dL 0.82-1 .77 Not Available [facility] ([facility]) [address] [place], [address], 03/29/2024 08:28:16 03/28/20 24 03/29/2024 TRIIO DOTHY ELLEN E (T3), FREE triiodothyro nine (T3), free 2.5 pg/mL 2.0-4. 4 Not Available [facility] ([facility]) [address] [place], [address], 03/29/2024 08:28:17 09/26/19 25 09/26/2024 ALBUM IN/CR EATIN INE RATIO ,URIN E creatinine, urine 315.0 mg/dL notest ab. Not Available [facility] ([facility]) [address] [place], [address], 09/26/2024 11:12:04 09/26/19 25 09/26/2024 ALBUM IN/CR EATIN INE RATIO ,URIN E albumin, urine 22.8 ug/mL notest ab. Not Available [facility] ([facility]) [address] [place], [address], 09/26/2024 11:12:04 09/26/19 25 09/26/2024 ALBUM IN/CR EATIN INE RATIO ,URIN E alb/creat ratio 7 mg/g_ creat 0-29 Inge l: 0 - 29 Moder ately incre ased: 30 - 300 Sever margarita incre ased: >300 Not Available [facility] ([facility]) [address] [place], [address], 09/26/2024 11:12:04 09/26/19 25 09/26/2024 LIPID PANEL cholesterol, total 183 mg/dL 100-19 9 Not Available [facility] ([facility]) [address] [place], [address], 09/26/2024 11:12:05 09/26/19 25 09/26/2024 LIPID PANEL triglyceride s 102 mg/dL 0-149 Not Available [facility] ([facility]) [address] [place], [address], 09/26/2024 11:12:05 09/26/19 25 09/26/2024 LIPID PANEL HDL cholesterol 68 mg/dL >39 Not Available [facility] ([facility]) [address] [facility], [place], [address], 09/26/2024 11:12:05 09/26/19 25 09/26/2024 LIPID PANEL VLDL cholesterol fahad 18 mg/dL 5-40 Not Available [facility] ([facility]) [address] [facility], [place], [address], 09/26/2024 11:12:05 09/26/19 25 09/26/2024 LIPID PANEL LDL chol calc ([facility]) 97 mg/dL 0-99 Not Available [facility] ([facility]) [address] [facility], [place], [address], 09/26/2024 11:12:05 09/26/19 25 09/26/2024 COMP. METAB OLIC PANEL (14) glucose 90 mg/dL 70-99 Not Available [facility] ([facility]) [address] [place], [address], 09/26/2024 11:12:06 09/26/19 25 09/26/2024 COMP. METAB OLIC PANEL (14) BUN 22 mg/dL 8-27 Not Available [facility] ([facility]) [address] [place], [address], 09/26/2024 11:12:06 09/26/19 25 09/26/2024 COMP. METAB OLIC PANEL (14) creatinine 0.82 mg/dL 0.57-1 .00 Not Available [facility] ([facility]) [address] [place], [address], 09/26/2024 11:12:06 09/26/19 25 09/26/2024 COMP. METAB OLIC PANEL (14) eGFR 78 mL/mi n/1.7 3 >59 Not Available [facility] ([facility]) [address] [place], [address], 09/26/2024 11:12:06 09/26/19 25 09/26/2024 COMP. METAB OLIC PANEL (14) BUN/creatini ne ratio 27 12-28 Not Available [facility] ([facility]) [address] [facility] [place], [address], 09/26/2024 11:12:06 09/26/19 25 09/26/2024 COMP. METAB OLIC PANEL (14) sodium 140 mmol/ L 134-14 4 Not Available [facility] ([facility]) [address] [facility] [place], [address], 09/26/2024 11:12:06 09/26/19 25 09/26/2024 COMP. METAB OLIC PANEL (14) potassium 4.8 mmol/ L 3.5-5. 2 Not Available [facility] ([facility]) [address] [facility], [place], [address], 09/26/2024 11:12:06 09/26/19 25 09/26/2024 COMP. METAB OLIC PANEL (14) chloride 102 mmol/ L 96-106 Not Available [facility] ([facility]) [address] [facility], [address], 09/26/2024 11:12:06 09/26/19 25 09/26/2024 COMP. METAB OLIC PANEL (14) carbon dioxide, total 25 mmol/ L 20-29 Not Available [facility] ([facility]) [address] [place], [address], 09/26/2024 11:12:06 09/26/19 25 09/26/2024 COMP. METAB OLIC PANEL (14) calcium 9.8 mg/dL 8.7-10 .3 Not Available [facility] ([facility]) [address] [facility] [place], [address], 09/26/2024 11:12:06 09/26/19 25 09/26/2024 COMP. METAB OLIC PANEL (14) protein, total 6.6 g/dL 6.0-8. 5 Not Available [facility] ([facility]) [address] [place], [address], 09/26/2024 11:12:06 09/26/19 25 09/26/2024 COMP. METAB OLIC PANEL (14) albumin 4.4 g/dL 3.9-4. 9 Not Available [facility] ([facility]) [address] [place], [address], 09/26/2024 11:12:06 09/26/19 25 09/26/2024 COMP. METAB OLIC PANEL (14) globulin, total 2.2 g/dL 1.5-4. 5 Not Available [facility] ([facility]) [address] [place], [address], 09/26/2024 11:12:06 09/26/19 25 09/26/2024 COMP. METAB OLIC PANEL (14) bilirubin, total 0.4 mg/dL 0.0-1. 2 Not Available [facility] ([facility]) [address] [place], [address], 09/26/2024 11:12:06 09/26/19 25 09/26/2024 COMP. METAB OLIC PANEL (14) alkaline phosphatase 70 IU/L 44-121 Not Available [facility] ([facility]) [address] [place], [address], 09/26/2024 11:12:06 09/26/19 25 09/26/2024 COMP. METAB OLIC PANEL (14) AST (SGOT) 20 IU/L 0-40 Not Available [facility] ([facility] [address] [facility], [address], 09/26/2024 11:12:06 09/26/19 25 09/26/2024 COMP. METAB OLIC PANEL (14) ALT (SGPT) 15 IU/L 0-32 Not Available [facility] ([facility]) [address] [facility], [place], [address], 09/26/2024 11:12:06 09/26/19 25 09/26/2024 HEMOG LOBIN A1C hemoglobin A1C 5.5 % 4.8-5. 6 Predi abete s: 5.7 - 6.4 Diabe ana: >6.4 Glyce obdulia contr ol for adult s with diabe ana: <7.0 Not Available [facility] ([facility]) [address] [facility], [place], [address], 09/26/2024 11:12:07 09/26/19 25 09/26/2024 CBC WITH DIFFE RENTI AL/PL ATELE T WBC 6.2 x10e3 /uL 3.4-10 .8 Not Available [facility] ([facility]) [address] [facility], [place], [address], 09/26/2024 11:12:08 09/26/19 25 09/26/2024 CBC WITH DIFFE RENTI AL/PL ATELE T RBC 4.38 x10e6 /uL 3.77-5 .28 Not Available [facility] ([facility]) [address] [facility], [place], [address], 09/26/2024 11:12:08 09/26/19 25 09/26/2024 CBC WITH DIFFE RENTI AL/PL ATELE T hemoglobin 12.6 g/dL 11.1-1 5.9 Not Available [facility] ([facility]) [address] [facility], [place], [address], 09/26/2024 11:12:08 09/26/19 25 09/26/2024 CBC WITH DIFFE RENTI AL/PL ATELE T hematocrit 39.2 % 34.0-4 6.6 Not Available [facility] ([facility]) [address] [facility], [place], [address], 09/26/2024 11:12:08 09/26/19 25 09/26/2024 CBC WITH DIFFE RENTI AL/PL ATELE T MCV 90 fL 79-97 Not Available [facility] ([facility]) [address] [facility], [place], [address], 09/26/2024 11:12:08 09/26/19 25 09/26/2024 CBC WITH DIFFE RENTI AL/PL ATELE T MCH 28.8 pg 26.6-3 3.0 Not Available [facility] ([facility]) [address] [facility], [place], [address], 09/26/2024 11:12:08 09/26/19 25 09/26/2024 CBC WITH DIFFE RENTI AL/PL ATELE T MCHC 32.1 g/dL 31.5-3 5.7 Not Available [facility] ([facility]) [address] [facility], [place], [address], 09/26/2024 11:12:08 09/26/19 25 09/26/2024 CBC WITH DIFFE RENTI AL/PL ATELE T RDW 12.9 % 11.7-1 5.4 Not Available [facility] ([facility]) [address] [place], [address], 09/26/2024 11:12:08 09/26/19 25 09/26/2024 CBC WITH DIFFE RENTI AL/PL ATELE T platelets 178 x10e3 /uL 150-45 0 Not Available [facility] ([facility]) [address] [place], [address], 09/26/2024 11:12:08 09/26/19 25 09/26/2024 CBC WITH DIFFE RENTI AL/PL ATELE T neutrophils 60 % notest ab. Not Available [facility] ([facility]) [address] [place], [address], 09/26/2024 11:12:08 09/26/19 25 09/26/2024 CBC WITH DIFFE RENTI AL/PL ATELE T lymphs 28 % notest ab. Not Available [facility] ([facility]) [address] [facility], [place], [address], 09/26/2024 11:12:08 09/26/19 25 09/26/2024 CBC WITH DIFFE RENTI AL/PL ATELE T monocytes 8 % notest ab. Not Available [facility] ([facility]) [address] [facility], [place], [address], 09/26/2024 11:12:08 09/26/19 25 09/26/2024 CBC WITH DIFFE RENTI AL/PL ATELE T eos 3 % notest ab. Not Available [facility] ([facility]) [address] [facility], [place], [address], 09/26/2024 11:12:08 09/26/19 25 09/26/2024 CBC WITH DIFFE RENTI AL/PL ATELE T basos 1 % notest ab. Not Available [facility] ([facility]) [address] [facility], [place], [address], 09/26/2024 11:12:08 09/26/19 25 09/26/2024 CBC WITH DIFFE RENTI AL/PL ATELE T neutrophils (absolute) 3.7 x10e3 /uL 1.4-7. 0 Not Available [facility] ([facility]) [address] [facility], [place], [address], 09/26/2024 11:12:08 09/26/19 25 09/26/2024 CBC WITH DIFFE RENTI AL/PL ATELE T lymphs (absolute) 1.8 x10e3 /uL 0.7-3. 1 Not Available [facility] ([facility]) [address] [facility], [place], [address], 09/26/2024 11:12:08 09/26/19 25 09/26/2024 CBC WITH DIFFE RENTI AL/PL ATELE T monocytes(ab solute) 0.5 x10e3 /uL 0.1-0. 9 Not Available [facility] ([facility]) [address] [facility], [place], [address], 09/26/2024 11:12:08 09/26/19 25 09/26/2024 CBC WITH DIFFE RENTI AL/PL ATELE T eos (absolute) 0.2 x10e3 /uL 0.0-0. 4 Not Available [facility] ([facility]) [address] [facility], [place], [address], 09/26/2024 11:12:08 09/26/19 25 09/26/2024 CBC WITH DIFFE RENTI AL/PL ATELE T baso (absolute) 0.1 x10e3 /uL 0.0-0. 2 Not Available [facility] ([facility]) [address] [facility], [place], [address], 09/26/2024 11:12:08 09/26/19 25 09/26/2024 CBC WITH DIFFE RENTI AL/PL ATELE T immature granulocytes 0 % notest ab. Not Available [facility] ([facility]) [address] [facility], [place], [address], 09/26/2024 11:12:08 09/26/19 25 09/26/2024 CBC WITH DIFFE RENTI AL/PL ATELE T immature grans (abs) 0.0 x10e3 /uL 0.0-0. 1 Not Available [facility] ([facility]) [address] [place], [address], 09/26/2024 11:12:08 02/28/20 24 02/28/2024 XR, chest No observ ation record ed. [facility] [address] [facility], [place], [address], 02/28/2024 16:56:48 03/06/20 24 03/06/2024 bone densi ty No observ ation record ed. [facility] [address] [place], [address], 03/14/2024 14:59:26 03/22/20 24 03/27/2024 elect rocar diogr am No observ ation record ed. OMAHA In-Office Order Internal Use Only DO Not Attach Compendium DO Not Attach Compendium, Do Not Delete/merge, [id number] 03/27/2024 16:58:58 03/22/20 24 03/22/2024 elect rocar diogr am No observ ation record ed. ANKIT In-Office Order Internal Use Only DO Not Attach Compendium DO Not Attach Compendium, Do Not Delete/merge, [id number] 03/22/2024 12:06:35 03/22/20 24 03/22/2024 CT, angio gram, chest , w/ contr ast No observ ation record ed. [facility] [address] [facility], [place], [address], 03/28/2024 12:51:17 04/01/20 24 04/01/2024 NM, myoca rdial perfu karolina scan No observ ation record ed. [email or web address] [facility] [address], [place], [address], 04/02/2024 22:45:31 04/01/20 24 04/01/2024 dm can cardi olite stres s test (PROC ) No observ ation record ed. [facility] [address], [place], [address], 04/02/2024 22:35:20 04/01/20 NM, myoca rdial perfu karolina scan No observ ation record ed. [email or web address] Not Available 2023 22:45:31 04/02/20 24 04/02/2024 US, echoc ardio gram No observ ation record ed. [facility] [address] [facility] [address], [place], [address], 04/02/2024 22:45:32 01/29/06/05/2024 MAMMO , scree lindsay, digit al, bilat eral No observ ation record ed. [facility] [address] [place], [address], 06/05/2024 16:56:23 08/29/19 25 08/28/2024 XR, knee, 1 or 2 view No observ ation record ed. [facility] [address] [address], [place], [address], 08/30/2024 11:05:45 Result Notes None recorded. Problems Name Problem SNOMED Code Status Onset Date Resolution Date Notes Provider Name and Address Organization Details Recorded Time Type 2 diabetes mellitus 89772251 Active 2023 Kalee Tran [place] null, [place] [facility] 4 11:09:46 Essential hypertension 33073336 Active 2023 Kalee Tran [place], [place] [facility] 4 11:09:47 Obesity 323718813 Active 2023 Thomas Rutledge MD Attn: Koki g,[address] [facility], [place], [address], [place] [facility] 4 13:29:00 Body mass index 30+ - obesity 065115658 Active 2023 Thomas Rutledge MD Attn: Accountanselmo g,[address] [facility], [place], [address], [place] [facility] 4 13:34:06 Hyperlipidemia 85447523 Active 2023 Thomas Rutledge MD Attn: Accountin g,[address] [facility], [place], [address], [place] [facility] 4 21:33:45 Asthma 507490428 Active 2023 Thomas Rutledge MD Attn: Koki g,[address] [facility], [place], [address], [place] [facility] 4 21:33:45 Intracranial meningioma 808062632 Active 2023 Thomas Rutledge MD Attn: Koki garcia,[address] [facility], [place], [address], [facility] 21:34:17 Problem Notes None recorded. Procedures Surgical History Date Name Laterality Status Provider Name and Address Organization Details Recorded Time Back Surgery completed Randy Rosario MA [facility] 09/20/2023 10:19:59 tonsillectomy completed Randy Rosario MA [facility] 09/20/2023 10:20:06 ligation of bilateral fallopian tubes completed Randy Rosario MA [facility] 09/20/2023 10:20:24 Dilation and Curettage completed Randy Rosario MA [facility] 09/20/2023 10:20:36 partial hysterectomy completed Randy Rosario MA [facility] 09/20/2023 10:20:59 Imaging Results None recorded. Procedure Notes None recorded. Medical Equipment None Reported. Allergies Allergen ID Allergen Name Allergen Category Reaction Reaction Severity Criticality Documentation Date Start Date Code Code System Note Provider Name and Address Organization Details Recorded Time 321344 Symbicort medicatio n anaphylax is Not available Not available 09/20/2023 52282 8 RxNorm MARYCARMEN Ace, [facility] 10:22:27 267404 tetracycl ine medicatio n Not available Not available Not available 09/20/2023 22179 RxNorm MARYCARMEN Ace [facility] 10:22:39 Medications Name Sig Start Date Stop Date Status Note LastModified by Organization Details LastModified Time losartan 50 mg tablet Take 1 tablet by mouth every day 01/23 completed Not Available Not Available Not Available cyclobenzap rine 10 mg tablet TAKE 1 TABLET BY MOUTH TWICE A DAY NEEDED active Not Available Not Available No t Available amoxicillin 500 mg capsule TAKE 4 CAPSULES BY MOUTH 1 HOUR BEFORE DENTAL APPOINTME NT active Not Available Not Available No t Available metformin 500 mg tablet TAKE 1 TABLET DAILY 2024 active Not Available Not Available Not Avai lable gabapentin 600 mg tablet active Not Available Not Available Not Available albuterol sulfate 2.5 mg/3 mL (0.083 %) solution for nebulizatio n active Not Available Not Available Not Available atorvastati n 10 mg tablet TAKE 1 TABLET EVERY MONDAY, MONDAY AND Monday active Not Available Not Available Not Avai lable azithromyci n 250 mg tablet TAKE 2 TABLETS BY MOUTH TODAY, THEN TAKE 1 TABLET DAILY FOR 4 DAYS DIRECTED 02/26 completed Not Available Not Available Not Available hydrocodone 5 mg-acetamin ophen 325 mg tablet TAKE 1 TABLET BY MOUTH TWICE DAILY NEEDED active Not Available Not Available No t Available flurbiprofe n 0.03 % eye drops active Not Available Not Available No t Available ondansetron HCl 4 mg tablet TAKE 1 TABLET BY MOUTH THREE TIMES A DAY NEEDED active Not Available Not Available No t Available prednisone 20 mg tablet Take 2 tablets every day by oral route for 5 days. 05/21 completed Not Available Not Available Not Available metronidazo le 500 mg tablet TAKE 1 TABLET BY MOUTH THREE TIMES A DAY FOR 7 DAYS 09/19 completed Not Available Not Available Not Available ciprofloxac in 500 mg tablet TAKE 1 TABLET BY MOUTH TWICE A DAY FOR 7 DAYS 06/29 completed Not Available Not Available Not Available amoxicillin 500 mg tablet TAKE 4 TABLET BY MOUTH 1 HOUR PRIOR PROCEDURE 01/23 completed Not Available Not Available Not Available prednisolon e acetate 1 % eye drops,suspe nsion 05/29 completed Not Available Not Available Not Available metformin 1,000 mg tablet TAKE 1 TABLET TWICE A DAY 01/23 completed Not Available Not Available Not Available diclofenac sodium 75 mg tablet,simone yed release TAKE 1 TABLET BY MOUTH TWICE DAILY WITH FOOD OR MILK active Not Available Not Available No t Available levofloxaci n 500 mg tablet TAKE 1 TABLET BY MOUTH EVERY DAY FOR 7 DAYS 04/19 completed Not Available Not Available Not Available methylpredn isolone 4 mg tablets in a dose pack TAKE 6 TABLETS ON DAY 1 DIRECTED ON PACKAGE AND DECREASE BY 1 TAB EACH DAY FOR A TOTAL OF 6 DAYS 05/29 completed Not Available Not Available Not Available albuterol sulfate HFA 90 mcg/actuati on aerosol inhaler active Not Available Not Available Not Available cefdinir 300 mg capsule TAKE 1 CAPSULE BY MOUTH TWICE A DAY FOR 7 DAYS 06/29 completed Not Available Not Available Not Available glipizide 5 mg tablet 09/19 completed Not Available Not Available Not Available amoxicillin 875 mg-potassiu m clavulanate 125 mg tablet TAKE 1 TABLET BY MOUTH EVERY 12 HOURS FOR 7 DAYS active Not Available Not Available No t Available moxifloxaci n 0.5 % eye drops 05/29 completed Not Available Not Available Not Available nitrofurant oin monohydrate /macrocryst als 100 mg capsule TAKE 1 CAPSULE BY MOUTH TWICE A DAY FOR 5 DAYS 09/19 completed Not Available Not Available Not Available Spiriva Respimat 1.25 mcg/actuati on solution for inhalation 09/19 completed Not Available Not Available Not Available Bydureon BCise 2 mg/0.85 mL subcutaneou s auto-inject or 09/19 completed Not Available Not Available Not Available Trelegy Ellipta 200 mcg-62.5 mcg-25 mcg powder for inhalation active Not Available Not Available N ot Available BinaxNOW COVID-19 Ag Self Test kit USE DIRECTED 06/29 completed Not Available Not Available Not Available Paxlovid 300 mg (150 mg x 2)-100 mg tablets in a dose pack TAKE 2TABLETS OF NIRMATREL VIR WITH 1TABLET OF RITONAVIR BY MOUTH TWICE A DAY FOR 5 DAYS 06/29 completed Not Available Not Available Not Available Mounjaro 7.5 mg/0.5 mL subcutaneou s pen injector INJECT 7.5MG WEEKLY FOR 4 WEEKS THEN GO TO 10MG WEEKY FOR 4WEEKS 06/29 completed Not Available Not Available Not Available Mounjaro 5 mg/0.5 mL subcutaneou s pen injector INJECT 0.5 MG SUBCUTANE OUSLY WEEKLY 06/29 completed Not Available Not Available Not Available Mounjaro 15 mg/0.5 mL subcutaneou s pen injector INJECT THE CONTENTS OF 1 PEN UNDER THE SKIN ONCE WEEKLY active Not Available Not Available No t Available Mounjaro 10 mg/0.5 mL subcutaneou s pen injector INJECT THE CONTENTS OF 1 PEN UNDER THE SKIN ONCE WEEKLY 06/29 completed Not Available Not Available Not Available Mounjaro 12.5 mg/0.5 mL subcutaneou s pen injector INJECT 1 PEN (12.5MG) UNDER THE SKIN ONCE WEEKLY 05/29 completed Not Available Not Available Not Available Vitals Date Recorded Body height Body mass index (BMI) Body weight Heart rate Oxygen saturation Oxygen saturation in Arterial blood by Pulse oximetry Systolic blood pressure Diastolic blood pressure Provider Name and Address Organization Details Last Updated DateTime 5 165.1 cm 29.7 kg/m2 12342.8 8 g 88 /min 98 % 98 % 120 mm[Hg] 64 mm[Hg] Emely Asencio MA [facility] 5 11:38:28 Date Recorded Body height Body mass index (BMI) Body weight Heart rate Oxygen saturation Oxygen saturation in Arterial blood by Pulse oximetry Systolic blood pressure Diastolic blood pressure Provider Name and Address Organization Details Last Updated DateTime 5 165.1 cm 30 kg/m2 32269.3 5 g 88 /min 100 % 100 % 110 mm[Hg] 60 mm[Hg] Margie Wade [facility] 5 15:56:57 Date Recorded Body height Body mass index (BMI) Body weight Heart rate Oxygen saturation Oxygen saturation in Arterial blood by Pulse oximetry Systolic blood pressure Diastolic blood pressure Provider Name and Address Organization Details Last Updated DateTime 5 165.1 cm 30.5 kg/m2 92542.7 6 g 76 /min 99 % 99 % 120 mm[Hg] 66 mm[Hg] Emely Asencio MA [facility] 5 15:15:12 Date Recorded Body height Body mass index (BMI) Body weight Heart rate Oxygen saturation Oxygen saturation in Arterial blood by Pulse oximetry Systolic blood pressure Diastolic blood pressure Provider Name and Address Organization Details Last Updated DateTime 4 165.1 cm 29.4 kg/m2 56580.4 1 g 99 /min 97 % 97 % 120 mm[Hg] 70 mm[Hg] Margie Wade [facility] 4 15:46:03 Date Recorded Body height Body mass index (BMI) Body weight Heart rate Oxygen saturation Oxygen saturation in Arterial blood by Pulse oximetry Systolic blood pressure Diastolic blood pressure Provider Name and Address Organization Details Last Updated DateTime 4 165.1 cm 29.3 kg/m2 62967.5 4 g 96 /min 99 % 99 % 120 mm[Hg] 62 mm[Hg] Emely Asencio MA [place] - [facility] 11:07:44 Social History Question Answer Notes LastModified by Organizat ion Details LastModified Time Tobacco Smoking Status Never Smoker Lupewilfridonasra Rosario MA null, [place] - [facility] 09/20/2023 10:19:15 Do You Have An Advance Directive? Yes Information n ot available 09/20/2023 Are You Blind Or Do You Have Difficulty Seeing? No Information n ot available 09/20/2023 What Is Your Level Of Caffeine Consumption? Occasional Information not available 09/20/2023 In The 14 Days Before Symptom Onset, Have You Had Close Contact With A Laboratory-confirm ed COVID-19 While That Case Was Ill? No Information n ot available 01/24/2024 In The 14 Days Before Symptom Onset, Have You Had Close Contact With A Person Who Is Under Investigation For COVID-19 While That Person Was Ill? No Information not available 01/24/2024 Have You Been To An Area Known To Be High Risk For COVID-19? No Information not available 01/24/2024 Are You Deaf Or Do You Have Serious Difficulty Hearing? No Information not available 09/20/2023 What Type Of Diet Are You Following? REGULAR Information n ot available 09/20/2023 Are There Any Guns Present In Your Home? No Information not available 09/20/2023 What Was The Date Of Your Most Recent Tobacco Screening? 09/25/2024 mebyma Information not available 09/25/2024 What Is Your Relationship Status? Information not available 09/20/2023 Do You Use Your Seat Belt Or Car Seat Routinely? Yes Information not available 09/20/2023 Do You Have Smoke And Carbon Monoxide Detectors In Your Home? Yes Information not available 09/20/2023 Do You Use Sunscreen Routinely? Yes Information not available 09/20/2023 Has Tobacco Cessation Counseling Been Provided? No Information not available 09/20/2023 Sex: Female Functional Status Question Answer Note LastModified by Organizat ion Details LastModified Time Do you use any illicit or recreational drugs? No Information not available 09/20/2023 Do you or have you ever used any other forms of tobacco or nicotine? No Information not available 09/20/2023 What is your level of alcohol consumption? None Information not available 09/20/2023 Are you currently employed? No Information not available 09/20/2023 Are you able to care for yourself? Yes Information n ot available 09/20/2023 What is your exercise level? Moderate Information not available 09/20/2023 Mental Status Question Answer Note LastModified by Organization D etails LastModified Time Do you feel stressed (tense, restless, nervous, or anxious, or unable to sleep at night)? [id number] Information not available 09/20/2023 Family History Nothing Reported. Medical History Condition Response Coronary Artery Disease N Other N Atrial Fibrillation N High Blood Pressure Y Depression N COPD N Blood Clots Y Anxiety Disorder N Muscle, Joint, or Bone Problems N Acid Reflux (GERD) N Cancer Y Stroke N High Cholesterol Y Liver Disease N Headaches N Kidney or Bladder Problems N Thyroid Problems N GI Problems N Skin Problems N Anemia N Heart Attack ([place]) N Diabetes Y Seizures/Epilepsy N Asthma Y Allergies Y Hepatitis N Heart Failure N Osteoporosis N Gynecological HistoryNo gynecological history recorded. Obstetrics History GPAL:G 0 P 0 0 0 0 Immunizations Vaccine Type Date Status Note Provider Nam e and Address Organization Details Recorded Time Influenza, split virus, quadrivalent, preservative 7 completed Laurie Dud[place] null, [place] [facility] 01/04/2024 11:51:04 Influenza, MDCK, quadrivalent, PF 0 completed Laur[place] [facility] 01/04/2024 11:51:04 Influenza, high-dose, quadrivalent, PF 2 completed [place] [facility] 01/04/2024 11:51:04 Influenza, adjuvanted, quadrivalent, PF 3 completed [place] [facility] 01/04/2024 11:51:04 COVID-19, mRNA, LNP-S, PF, 30 mcg/0.3 mL dose 1 completed Laurie [place] [facility] 01/04/2024 11:51:04 COVID-19, mRNA, LNP-S, PF, 30 mcg/0.3 mL dose 1 completed Laur[place] [facility] 01/04/2024 11:51:04 COVID-19, mRNA, LNP-S, PF, 30 mcg/0.3 mL dose 1 completed Laur[place] [facility] 01/04/2024 11:51:04 COVID-19, mRNA, LNP-S, PF, 30 mcg/0.3 mL dose, jonathan-sucrose 2 completed Laurie [place] [facility] 01/04/2024 11:51:04 COVID-19, mRNA, LNP-S, bivalent, PF, 30 mcg/0.3 mL dose 2 completed Laur[place] [facility] 01/04/2024 11:51:04 COVID-19, mRNA, LNP-S, PF, jonathan-sucrose, 30 mcg/0.3 mL 3 completed Laur[place] [facility] 01/04/2024 11:51:04 pneumococcal polysaccharide PPV23 0 completed Laur[place] [facility] 01/04/2024 11:51:04 Pneumococcal conjugate PCV 13 4 completed Luarie [place] [facility] 01/04/2024 11:51:04 Influenza, split virus, trivalent, preservative 7 completed Laur[place] [facility] 01/04/2024 11:51:04 Influenza, split virus, trivalent, preservative 3 completed [place] [facility] 01/04/2024 11:51:04 Influenza, split virus, trivalent, PF 4 completed Laur[place] [facility] 01/04/2024 11:51:04 Influenza, split virus, quadrivalent, PF 8 completed [place] [facility] 01/04/2024 11:51:04 Influenza, split virus, quadrivalent, PF 8 completed Laur[place] [facility] 01/04/2024 11:51:04 Influenza, split virus, quadrivalent, PF 9 completed [place] [facility] 01/04/2024 11:51:04 Influenza, split virus, quadrivalent, PF 1 completed [place] [facility] 01/04/2024 11:51:04 Influenza, split virus, quadrivalent, PF 6 completed [place] [facility] 01/04/2024 11:51:04 Influenza, split virus, quadrivalent, PF 5 completed [place] [facility] 01/04/2024 11:51:04 Influenza, high-dose, trivalent, PF 4 completed Thomas Rutledge MD Attn: Accounting,[address] [place], [address], [place] [facility] 01/27/2024 22:37:41 Past Encounters Encounter ID Performer Location Encounter Start Date Encounter Closed Date Diagnosis/Indication Diagnosis SNOMED-CT Code Diagnosis ICD10 Code Diagnosis Note [id number] Thomas Rutledge MD [facility] (Adult Med) [address] [place] [address] 09/20/2023 09:47:52 09/20/2023 11:12:19 Type 2 diabetes mellitus 90645542 E11.9 Essential hypertension 43980760 I10 Obesity 167753705 E66.9 Asthma 309946667 J45.90 9 Hyperlipidemia 00308964 E78.5 Intracrani al meningioma 149990710 D32.0 [id number] Thomas Rutledge MD [facility] (Adult Med) [address] [place] [address] 01/24/2024 16:06:01 01/24/2024 17:36:22 Obesity 279468689 E66.8 Administra tion of influenza vaccine 27023434 Z23 Essential hypertension 30376965 I10 Asthma 417245134 J45.90 9 Hyperlipidemia 92650650 E78.5 Type 2 trice betes mellitus 08476258 E11.9 Intracrani al meningioma 255740795 D32.0 [id number] MD [facility] (Adult Med) [address] [place] [address] 02/27/2024 15:23:38 02/27/2024 17:02:47 Body mass index 25-29 - overweight 028699996 Z68.29 Overweight 780236665 E66 .3 Dyspnea 433288142 R06.02 [id number] MD [facility] (Adult Med) [address] [place] [address] 03/22/2024 10:58:08 03/22/2024 12:07:37 Dyspnea 905549073 R06.02 Dyspnea on exertion 6084 5006 R06.09 [id number] MD [facility] (Adult Med) [address] [place] [phone] 05/21/2024 11:06:34 05/21/2024 12:19:37 Body mass index 25-29 - overweight 675091917 Z68.29 Overweight 604948455 E66 .3 Neck pain 98885544 M54.2 [id number] MD [facility]hu [facility] (Adult Med) [address] [place] [phone] 05/29/2024 15:44:42 05/29/2024 16:53:52 Body mass index 30+ - obesity 469886169 Z68.30 Obesity 892507120 E66.9 Nausea 691182575 R11.0 Essential hypertension 17848319 I10 Asthma 422008178 J45.90 9 Hyperlipidemia 04436364 E78.5 Type 2 trice betes mellitus 57569482 E11.9 [id number] MD [facility] (Adult Med) [address] [place] [address] 0 09/25/2024 14:50:40 09/25/2024 15:46:05 Body mass index 30+ - obesity 813312998 E66.9 Obese class I 7795795769 72116 E66.811 Essential hypertension 30329048 I10 Hyperlipidemia 50476007 E78.5 Type 2 trice betes mellitus 75306047 E11.9 Health Concerns Section Related Observation LastModified by Organization Detai ls LastModified Time None Recorded Concern Status LastModified by Organization Details LastModified Time None Recorded Advance Directives Directive Y: Payers Encounter Date Sequence Insurance Name Policy Number Policy Ponce Covered Member ID Ponce Member ID Guarantor Name 02/27/2024 1 [place] Silvina Luckshis [id number] 2 Silvina Luckshis 02/27/2024 2 [place] [id number] Silvina L Luckshis [id number] Silvina Luckshis 03/22/2024 1 [place] Silvina Luckshis [id number] Silvina Luckshis 03/22/2024 2 [place] [id number] Silvina L Luckshis [id number] Silvina Luckshis 05/21/2024 1 [place] Silvina Luckshis [id number] Silvina Luckshis 05/21/2024 2 [place] [id number] Silvina L Luckshis [id number] Silvina Luckshis 05/29/2024 1 [place] Silvina Luckshis [id number] 2 Silvina Luckshis 05/29/2024 2 [place] [id number] Silvina L Luckshis [id number] Silvina Luckshis 09/25/2024 1 [place] Silvina Luckshis [id number] 2 Silvina Luckshis 09/25/2024 2 [place] [id number] Silvina L Luckshis [id number] Silvina Luckshis Notes Date Note Type Note Provider Name and Address Organization Details Recorded Time 02/27/2024 text/html she was out in [place] couple of weeks ago and she got sick whether was changing there was lot of humidity she started having cough and wheezing came back home was treated with steroids and antibiotic and she is still having problems with some shortness of breath no hemoptysis no PND nor orthopnea she has had no fever really no chills she did call Pulmonary they could not get her in so she is here Thomas Rutledge MD Attn: Accounting, [address] [place], [address], [facility] 02/27/2024 22:44:35 03/22/2024 text/html she continues anna ve some ESCALANTE she is not worse she is not any better there is no chest pain not describing any tightness she occasionally will feel a little bit of pain when she takes a deep breath on the right side of her ribcage no swelling in her legs not waking her up at night there is no hemoptysis no cough Thomas Rutledge MD Attn: Accounting, [address] [place], [address], [facility] 03/22/2024 23:25:46 05/21/2024 text/html couple of days a go she noticed that her right arm was feeling funny and heavy and that when she tried to lift things up it just kind of shook that abated and then what she noticed was that her left arm kind of felt the same weight without the shaking and now she may have a little bit of pain in her neck no problems with her legs. No trauma but she does have a history of neck problems there has been no chest pain or shortness for breath during this Thomas Rutledge MD Attn: Accounting, [address] [place], [address], [facility] 05/25/2024 17:16:33 05/29/2024 text/html 1. Numbness and tingling in her right arm much better with the prednisone. 2. Shortness of breath she still has a little bit she has not started exercising yet she just saw a supervisor corduroy cutting who basically did not have a whole lot more to add and told her that she could start getting back into her exercise routine slowly. She already has seen Cardiology for these symptoms who did not order any other testing they did evaluate her echo and her stress test. 3. Diabetes she has had 100 lb weight loss on the [place]. A little see A1c late last year 5.9 and lipid panel favorable dyslipidemia lab reviewed they look great Thomas Rutledge MD Attn: Accounting,[address] [facility], [place], [address], [facility] 05/29/2024 21:04:03 09/25/2024 text/html 2. Shortness of breath she still has a little bit she has not started exercising yet she just saw a supervisor corduroy cutting who basically did not have a whole lot more to add and told her that she could start getting back into her exercise routine slowly. She already has seen Cardiology for these symptoms who did not order any other testing they did evaluate her echo and her stress test. 3. Diabetes she has had 100 lb weight loss on the [place]. Having some arthritic complaints of her knees but does not want to do anything about it just you Thomas Rutledge MD Attn: Accounting,[address] [facility], [place], [address], [facility] 09/25/2024 22:33:42 OBGyn Episode No OBEpisode recorded.
--- OUTSIDE RECORDS SUMMARY | 2024-10-08 13:43 | XMS_ITS | Encounter Summary ---
Author Organization [facility] Address [address] [place] [address] Phone Care Team Providers Care Masonry Teacher Name Role Phone Eligio Rutledge MD Primary Care Provider Encounter Details Date Type Department Care Team (Late st Contact Info) Description 12/04/2020 Telephone [facility] [address] [place] [address] Advanced Medicine 5th [place] [address] [place] [address] Jessica Herrera Social History Tobacco Use Types Packs/Day Years Used Date Smoking Tobacco: Former Smokeless Tobacco: Never Comments Unknown Sex and Gender Information Value Date Recorded Sex Assigned at Not on file 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
--- OUTSIDE RECORDS SUMMARY | 2024-10-08 13:44 | XMS_ITS | CONTINUITY OF CARE DOCUMENT ---
Author Name mary shantaestela Address Unknown Organization [facility] Address [address] [place] [address] Phone [phone] Care Team Providers Care Hand Shaper Name Role Phone Florentin Cruz MD Unavailable [phone] THOMAS HARVEY MD Unavailable [phone] THOMAS JENSEN MD Unavailable PROBLEMS Condition Status Date Provider Notes SHORTNESS OF BREATH active Florentin Cruz MD ASTHMA active Florentin Cruz MD HTN HEART DISEASE W/O CHF active Florentin wilkes MD SLEEP APNEA active Florentin Cruz MD Chest pain-type to be determined active Rajendra Cruz MD Hypercholesterolemia, mixed active Nika silva ENCOUNTERS Date Type Provider Location Encounter Diag nosis - In-person encounter Office Visit Florentin Cruz MD [facility] - In-person encounter Office Visit Florentin Cruz MD [facility] - In-person encounter Office Visit Florentin Cruz MD [facility] - In-person encounter Office Visit Florentin Cruz MD [facility] - In-person encounter Office Visit Florentin Cruz MD [facility] - In-person encounter Office Visit Florentin Cruz MD [facility] Chest pain-type to be determined - In-person encounter Office Visit Florentin Cruz MD [facility] SHORTNESS OF BREATHASTHMAHTN HEART DISEASE W/O CHFHypercholesterolemia , mixedSLEEP APNEA VITAL SIGNS Date Observation Value Provider Body Mass Index (Ratio) 29.57 kg/m2 Ricki Cruz MD blood pressure, diastolic 74 mm[Hg] Evaristo carlos a [place] blood pressure, systolic 134 mm[Hg] Annemarie moran [place] oxygen saturation, oximetry 99 % [facility] 77 /min [facility] [place] blood pressure, cuff size regular Evaristo carlos a [place] weight E&M 183.2 [lb_av] [facility] [place] height E&M 66 [in_i] [facility] [place] Body Mass Index (Ratio) 43.90 kg/m2 Ricki Cruz MD blood pressure, diastolic 81 mm[Hg] Cy patricia Nuñez blood pressure, systolic 147 mm[Hg] Joan Nuñez pulse rate 97 /min Rama frazier respiratory rate E&M 16 /min Rama Nuñez oxygen saturation, oximetry 93 % Rama Nuñez weight E&M 272 [lb_av] Rama Campbel l blood pressure, cuff size regular Cy patricia Nuñez height E&M 66 [in_i] Rama Campbel l Body Mass Index (Ratio) 44.22 kg/m2 Ricki Cruz MD blood pressure, diastolic 88 mm[Hg] Jose Tomas blood pressure, systolic 159 mm[Hg] Steph Tomas oxygen saturation, oximetry 95 % Reilly Tomas respiratory rate E&M 20 /min Ju Tomas pulse rate 84 /min Reilly britt weight E&M 274.0 [lb_av] Reilly burris height E&M 66 [in_i] Reilly britt Body Mass Index (Ratio) 44.96 kg/m2 Ricki Cruz MD blood pressure, diastolic 72 mm[Hg] Sh cassy Atiya WARP SCOURING VAT TENDER blood pressure, systolic 132 mm[Hg] She rry Atiya WARP SCOURING VAT TENDER oxygen saturation, oximetry 97 % Reilly Tomas respiratory rate E&M 18 /min Ju Tomas pulse rate 82 /min Nannette Atiya WARP SCOURING VAT TENDER weight E&M 278.6 [lb_av] Reilly burris height E&M 66 [in_i] Reilly britt Body Mass Index (Ratio) 45.83 kg/m2 Katey shefali Mallory oxygen saturation, oximetry 97 % Vibha Mallory respiratory rate E&M 17 /min Vibha Mohamud blood pressure, diastolic 77 mm[Hg] Ta kit Mallory blood pressure, systolic 143 mm[Hg] Stewart ica Mohamud weight E&M 284 [lb_av] Vibha Mallory Body Mass Index (Ratio) 46.49 kg/m2 Torres i Judson blood pressure, diastolic 82 mm[Hg] Ke rri Judson blood pressure, systolic 136 mm[Hg] Edyta ri Judson pulse rate 65 /min Nika Jesse rivera oxygen saturation, oximetry 98 % Nika Judson respiratory rate E&M 16 /min Nika stephens weight E&M 287 [lb_av] Nika rivera Body Mass Index (Ratio) 46.17 kg/m2 Yaniv Zelaya blood pressure, diastolic 90 mm[Hg] Vignesh Zelaya blood pressure, systolic 160 mm[Hg] Carlee Zelaya pulse rate 89 /min Barbra Zelaya oxygen saturation, oximetry 95 % Barbra Zelaya respiratory rate E&M 18 /min Barbra Zelaya weight E&M 285 [lb_av] Barbra Zelaya height E&M 66 [in_i] Barbra Zelaya ALLERGIES Allergy Name Onset Date Reaction Criticality Status TETRACYCLINE Low Criticality active SYMBICORT Low Criticality active RESULTS Date Observation Value Provider Reference Range Interpretation Location 7 triglyceride, serum, fasting 90 mg/dL Mima Cassidy 7 HDL cholesterol, serum 57 [facility] cholesterol/HDL ratio, serum 2 [facility] 7 lipoprotein, beta, serum, point, quantitative, calculated 66 mg/dL [facility] 7 cholesterol, serum 141 mg/dL [facility] 7 international normalized ratio (INR) 0.9 [facility] 7 creatinine, serum 0.6 mg/dL [facility] 7 potassium, serum 4.0 mmol/L [facility] 7 sodium, serum 140 mmol/L [facility] HISTORY OF MEDICATION USE Medication Status Instructions Dates Provider Indications Com ments Trelemaria dolores Ellipta 200-62.5-25 mcg blister with device active TAKE ONE PUFF BY MOUTH ONCE A DAY Olga Blandon Mounjaro 15 mg/0.5 mL pen injector active INJECT 15MG IN STOMACH ONCE A WEEK Olga Blandon NORCO 5-325 MG ORAL TABLET active take 1-2 tabs every 4-6 hours as needed Rama Nuñez IBUPROFEN 800 MG ORAL TABLET active take 1 tab three times daily as needed Rama Nuñez GABAPENTIN 600 MG ORAL TABLET active take 1 tab three times daily as needed Rama Nuñez ATORVASTATIN CALCIUM 10 MG ORAL TABLET active take three times a week Rama Nuñez MAGNESIUM 250 MG ORAL TABLET active once daily Reilly Tomas FLONASE 50 MCG/ACT NASAL SUSPENSION completed daily - Reilly Tomas OCUVITE EYE + MULTI ORAL TABLET active take one pill a day Nika Roper CALCIUM-VITAMIN D active TAKE ONE TAB DAILY Carleerichelle Nathalie PROAIR HFA AEROSOL SOLUTION active 2 puffs every 4 hours as needed Nika Roper SIMVASTATIN 20 MG ORAL TABLET completed TAKE ONE TAB DAILY - Reilly Tomas METFORMIN HCL 1000 MG ORAL TABLET active TAKE Twice DAILY Nika Roper LINNETTE CONTOUR TEST IN VITRO STRIP completed TWICE DAILY - Reilly Tomas ALBUTEROL SULFATE (2.5 MG/3ML) 0.083% INHALATION NEBULIZATION SOLUTION active every 4 hours as needed Nika Roper SOCIAL HISTORY Date Observation Value Provider drug use no Florentin Cruz MD alcohol use no Florentin Cruz MD smoking status Never smoker Florentin Cruz MD drug use no Florentin Cruz MD alcohol use no Florentin Cruz MD social history E&M Marital Statu s: Grecia pgaan has never smoked. Smoking History: Grecia pagan has never smoked. Florentin Cruz MD social history reviewed E&M revi ewed - no changes required Florentin Cruz MD smoking status Never smoker Rama parra social history reviewed E&M revi ewed - no changes required Florentin Cruz MD alcohol use no Reilly britt drug use none Reilly britt smoking status Never smoker Reilly Sidhu number of grandchildren Florentin Cruz MD S faustina Rajput NP social history reviewed E&M revi ewed - no changes required Nannette Rajput NP alcohol use no Reilly Rodas jinnyon drug use none Reilly Rodas nson smoking status Never smoker Reilly Freeman aydee social history E&M Marital Statu s: P atient has never smoked. Smoking History: P atlee has never smoked. Florentin Cruz MD social history reviewed E&M revi ewed - no changes required Florentin Cruz MD drug use none Florentin Cruz MD smoking status Never smoker Florentin Cruz MD social history reviewed E&M reviewed Florentin Cruz MD social history E&M Marital Status: Marrie d Florentin Cruz MD drug use none Florentin Cruz MD social history reviewed E&M reviewed Florentin Cruz MD smoking status never smoker VigneshCkana marializabeth Leonardolizabeth y MENTAL STATUS Date Observation Value Provider assessment of judgme nt and insight E&M Alert and oriented to time, place and person. Mood and affect are normal. Florentin Cruz MD assessment of judgme nt and insight E&M Alert and oriented to time, place and person. Mood and affect are normal. Florentin Cruz MD FAMILY HISTORY Family Member Condition First Degree Blood Relative No Known Fam loki History INSURANCE PROVIDERS Payer name Policy type / Coverage type Williams red republican ID [facility] [id number] [place] MEDIC[place] Medicare [id number] ADVANCE DIRECTIVES Name Date DISCUSSED - NO DECISION MADE TREATMENT PLAN Date Name Performer Cardiology: B P today: 134/74 P rior BP: 147/81 (11/18/2019) Florentin Cruz MD Cardiology: O n atorvastatin. Florentin Cruz MD Cardiology:Likely re lated to her lungs, her echo was normal and stress test is negative for ischemia C ontinue using inhalers as needed O k to return to normal exercise as tolerated Florentin Cruz MD Cardiology:Chronic f or her c ontinue seeing pulm and usign inhalers prn for asthma Florentin Cruz MD Cardiology follow up :On atorvas tatin. Florentin Cruz MD Cardiology follow up Florentin castillo MD Cardiology follow up Florentin castillo MD Cardiology follow up :We will refill her losartan dose. Will f/u with patient in one year B P today: 147/81 P rior BP: 159/88 (01/12/2017) Labs Reviewed: C reat: 0.6 (11/01/2013) C hol: 141 (11/01/2013) HDL: 57 (11/01/2013) T (11/01/2013) Florentin Cruz MD Cardiology Florentin Cruz MD Cardiology Florentin Cruz MD Cardiology:Feeling t he symptoms less often. Has decreased stress. Florentin Cruz MD Cardiology:Elevated today, but normally well controlled. Will have her monitor her BPs at home. BP today: 159/88 P rior BP: 132/72 (12/09/2016) Labs Reviewed: C reat: 0.6 (11/01/2013) C hol: 141 (11/01/2013) HDL: 57 (11/01/2013) T (11/01/2013) Florentin Cruz MD Cardiology Nannette Laguerre P Cardiology:Controlled. Nannette ramos NP Cardiology:Elevated today. Highly stressed and recently exerted herself. BP today: 195/95 P rior BP: 143/77 (11/28/2013) Labs Reviewed: C reat: 0.6 (11/01/2013) C hol: 141 (11/01/2013) HDL: 57 (11/01/2013) T (11/01/2013) Nannette Rajput NP Cardiology:States th at she can feeling her heart pounding in her chest after exertion. She states it is not racing, but a thudding. Will repeat echo. Nannette Rajput NP Follow up: H er updated medication list for this problem includes: Losartan Potassium 25 Mg Tabs (Losartan potassium) ..... Take one tab daily Florentin Cruz MD Follow up Florentin Cruz MD Follow up: O rders: C ardiac Cath - L/R - CNE (*) Florentin Cruz MD FOLLOW UP Florentin Cruz MD FOLLOW UP: H er updated medication list for this problem includes: Simvastatin 20 Mg Tabs (Simvastatin) ..... Take one tab daily P lease adjust cholesterol medication to keep LDL less than 70 and HDL greater than 50 Florentin Cruz MD FOLLOW UP: H er updated medication list for this problem includes: Losartan Potassium 25 Mg Tabs (Losartan potassium) ..... Take one tab daily Florentin Cruz MD FOLLOW UP: H er updated medication list for this problem includes: Advair Diskus 500-50 Mcg/dose Aepb (Fluticasone-salmeterol) ..... Take as directed Albuterol Sulfate (2.5 Mg/3ml) 0.083% Nebu (Albuterol sulfate) ..... Take as directed Montelukast Sodium 10 Mg Tabs (Montelukast sodium) ..... Take one tab at bedtime Proair Hfa Aers (Albuterol sulfate aers) ..... Use as directed. Spiriva Handihaler 18 Mcg Caps (Tiotropium bromide monohydrate) ..... Use as directed Florentin Cruz MD Date Name Complete Echo Stress Regadenoson Complete Echo Cardiac Cath - L/R - CNE HISTORY OF PROCEDURES Procedure Date Procedure Name Provider Procedure Notes S tatus EKG Florentin Cruz MD completed SNOMED-CT: 81140400 Physical Exam, Performed: Pulse Exam of Foot Florentin Cruz MD completed SNOMED-CT: 645356056 [id number] Current Medications Documented Florentin Cruz MD completed SNOMED-CT: 26750085 Physical Exam, Performed: Pulse Exam of Foot Florentin Cruz MD completed EKG Florentin Cruz MD completed SNOMED-CT: 314076620 [id number] Current Medications Documented Florentin Cruz MD completed EKG Florentin Cruz MD completed
--- OUTSIDE RECORDS SUMMARY | 2024-10-08 13:44 | XMS_ITS | Data Portability ---
Author Organization [place] [facility] [place], Main Office Address [address] [place] [address] Care Team Providers Care Tack Puller Name Role Phone THOMAS RUTLEDGE Primary Care Provider THOMAS RUTLEDGE Referring Provider [phone] Assessment Encounter Date Assessment Date Assessment LastModified by Organization Details LastModified Time 01/26/2023 01/26/2023 She may have a little bit of a hernia anteriorly nothing suggest diverticulitis she will try a little bit of Salonpas I have offered imaging she says she would rather try this 1st if she has horrible abdominal pain that starts please call or go to the Not available 01/26/2023 22:29:37 02/06/2023 02/06/2023 CT scan results have been discussed Cipro and Flagyl have been ordered CBC CMP lipase urine culture she will call in 48 hours [email or web address] Not available 02/12/2023 13:54:30 03/24/2023 03/24/2023 HPI: Patient returns. She is here for cortisone injection right knee. Last shot was 3 months ago. She has severe medial compartment osteoarthritis. She has been working very hard on weight loss is doing very well. At this point she is down to 217 lb today. Last time we would wait her she was 253 lb earlier this year. She is doing excellent job of calorie counting and being mindful of her dietary intake. She wished to have another injection today at this point. Physical exam: 67-year-old female alert pleasant. She has a mild effusion in the right knee. Range of motion is from 12-125 degrees. No edema in lower extremities. Walks well without limp. Mild tenderness over the medial joint line to palpation. After ChloraPrep was used on skin 20 mg Kenalog and 3 cc of 0.5% ropivacaine was injected into the right knee. Risk of infection discussed. Impression: 67-year-old female who has severe medial compartment osteoarthritis. Shots continue to give her good relief. She is going to continue with her weight loss. We will see her in 3 months. [email or web address] Not available 03/24/2023 10:04:28 04/13/2023 04/13/2023 Abdominal wall tenderness not resolved. Has some fat stranding on CT. Suspect fat necrosis now resolving. Follow-up p.r.n. [email or web address] Not available 04/13/2023 12:26:38 04/25/2023 04/25/2023 Continue current therapy follow-up 4 months she is feeling great [email or web address] Not available 04/28/2023 23:12:18 Plan of Treatment Reminders Order Date Submit Date Provider Last Modified By Organization Details Last Modified Time Details Appointments None recorded. Lab CMP, serum or plasma 2022 023 [email or web address] Oscar, [address], [place], [address], 4 09:39:14 CBC w/ auto diff 2022 023 [email or web address] Oscar, 2022 [address], [place], [address], 3 09:06:52 lipase, serum or plasma 2022 023 [email or web address] Moore, 2022 [address], [place], [address], 4 09:39:14 culture, urine 2022 023 [email or web address] Moore, 2022 [address], [address], [place], [address], 4 09:39:15 culture, urine + sensitivity 2022 023 [email or web address] Moore, 2022 [address], [address], [place], [address], 4 09:39:15 Referral None recorded. Procedures injection/a spiration joint/bursa (PROC) - in office procedure, administere d by provider 2022 023 In-Office Order, Internal Use Only DO Not Attach Compendium DO Not Attach Compendium, Do Not Delete/merge, [id number] 3 09:35:29 Surgeries None recorded. Imaging None recorded. Medication Orders Kenalog 10 mg/mL suspension for injection [address]/Pharmacy #[id number], [address], [place], [address], 3 16:28:15 ropivacaine (PF) 5 mg/mL (0.5 %) injection solution [address]/Pharmacy #[id number], [address] [facility], [place], [address], 3 16:28:15 Cipro 500 mg tablet 2022 023 [email or web address] [facility]/Pharmacy #[id number], [address] [facility], [place], [address], 3 09:31:47 Flagyl 500 mg tablet 2022 023 [email or web address] [facility]/Pharmacy #[id number], [address] [facility], [place], [address], 3 09:32:15 Patient TargetsNo targets recorded. Patient InstructionsNo instructions recorded. Reason for Referral None Reported. Results Created Date Observation Date Name Description Value Unit Range Abnormal Flag Note LastModifiedBy Organization Detail LastModifiedTime 02/03/20 23 02/02/2023 CREAT INANTONIO , I-STA T creatinine 0.9 mg/dL 0.6-1. 3 Not Available [facility] (Lab) [address], [place], [address], 02/06/2023 09:37:12 03/22/20 24 03/22/2024 CREAT ININE , I-STA T creatinine 1.0 mg/dL 0.6-1. 3 Not Available [facility] (Lab) [address] [place], [address], 03/22/2024 19:39:04 01/04/20 23 01/03/2023 US, duple x, carot id arter y No observ ation record ed. [email or web address] [facility] [address] [place], [address], 01/05/2023 16:13:56 02/03/20 23 02/02/2023 CT, abdom en + pelvi s, w/ contr ast [facility] [address] [place], [place] [id number] [phone] Patien t Name: DANNI RAZO Access ion #: [id number] Sex: F : 1955 4 Dictat ed By: Ezequiel Vera Attend ing Physic lazaro: AMY RUTLEDGE [facility] Physic lazaro: AMY RUTLEDGE Exam Date: 2022 12:30 PM Exam Name: CT ABDOME N PELVIS W Admitt ing Diagno sis(es ): CT ABDOME N PELVIS W INDICA TION: : 67 years old Female abdomi nal pain. EXAM DATE: 023 12:30 PM CDT COMPAR MATTIE: None RADIAT ION DOSE: CTDIvo l: 24 mGy, DLP: 1391 mGy*cm PROCED URE: Helica l CT images were obtain ed of the abdome n and pelvis with iv contra st Sagitt al and medeiros l recons tructi ons are provid ed. ORAL CONTRA ST: yes ADDITI ONAL IMAGES / REFORM ATS: None FINDIN GS: LUNG BASE: There is mosaic attenu ation of the lungs. Promin ent right perihi lar lymph node calcif icatio n. LIVER: Enlarg ed. Puncta te calcif icatio ns. GALLBL ADDER AND BILIAR Y TREE: Absent . No intra- or extrah epatic biliar y ductal dilati on. PANCRE : Normal . SPLEEN : Scatte red calcif icatio ns. BOWEL: Coloni c divert iculos is. Rectoc heidi. Debris is noted in the stomac h lumen. ADRENA LS: Normal . KIDNEY S AND URETER : Small scatte red cystic lesion s. Perine phric fat strand ing. BLADDE R: Normal . REPROD UCTIVE ORGANS : Absent . LYMPH NODES: No lympha denopa thy. PERITO NEUM: No ascite s or free air. No other fluid collec tion. VESSEL S: Scatte red athero sclero tic calcif icatio ns are noted. Page 1 [facility] [address] [place] [address] Patien t Name: DANNI RAZO ion #: [id number] Sex: F : 1955 4 Dictat ed By: Ezequiel Vera Attend ing Physic lazaro: CAMILA ALVARADO [facility] Physic lazaro: AMY RUTLEDGE Exam Date: 2022 12:30 PM Exam Name: CT ABDOME N PELVIS W Admitt ing Diagno sis(es ): RETROP ERITON EUM: Normal . ABDOMI NAL WALL: Anteri or abdomi nal wall subcut aneous fat strand ing. BONES: Scatte red osseou s degene rative change s are noted. IMPRES ANURADHA: No acute intraa bdomin al abnorm ality. Coloni c divert iculos is. Small rectoc heidi. Electr onical ly Signed by: Ezequiel Vera at 2022 14:24: 03 PM Page 2 [email or web address] [facility] (Imaging) [address] [place], [address], 02/02/2023 19:16:50 04/04/20 23 04/03/2023 MAMMO , scree lindsay, digit al, bilat eral No observ ation record ed. cyl [facility] [address] [place] [address], [address], 04/09/2023 15:56:35 03/06/20 24 03/06/2024 DEXA, axial skele ton [facility] [address] [place] [address] [address] [phone] Patien t Name: DANNI RAZO ion #: [id number] Sex: F : 1955 9 Dictat ed By: Madeleine Grijalva Attend ing Physic lazaro: AMY RUTLEDGE Orderi Physic lazaro: AMY RUTLEDGE Exam Date: 2023 11:17 AM Exam Name: XR DEXA-H IPS PELVIS SPINE Admitt ing Diagno sis(es ): INDICA TION: 68 years old, Female ; POSTME NOPAUS AL STATE. Osteop orosis screen ing. DEXA SCAN: BONE DENSIT Y REPORT : AP SPINE (L1-L4 ) : T Score: 2.6 LEFT HIP TOTAL : T Score: 1.6 RT HIP TOTAL : T Score: 1.7 TOTAL BILAT HIP AVG: T Score: 1.6 10 YEAR FRACTU RE RISK* Not provid ed. IMPRES ANURADHA: 1. Normal bone minera l densit y lumbar spine. 2. Normal bone minera l densit y of the bilate ral hips. ------ ------ ------ ------ ------ ------ ------ ------ ----- *FRAX versio n 3.08. Fractu re probab ility calcul ated for an untrea tana patien t. Fractu re probab ility may be lower if the patien t has receiv ed treatm ent. T-scor e: compar mattie by sonja elliott (MARTÍN) to a young adult popula nan ryder for sex and ethnic ity (used for postme nopaus al women and men >50 Page 1 [facility] [address] [place] [address] [phone] Patien t Name: DANNI RAZO Access ion #: [id number] Sex: F : 1955 9 Dictat ed By: Madeleine Grijalva Attend ing Physic lazaro: CAMILA ALVARADO Physic lazaro: AMY RUTLEDGE Exam Date: 2023 11:17 AM Exam Name: XR DEXA-H IPS PELVIS SPINE Admitt ing Diagno sis(es ): years) and classi fied by WHO criter ia. -1.0: normal <-1.0 to >-2.5: osteop enia -2.5: osteop orosis -2.5 plus fragil ity fractu re: severe osteop orosis Z-scor e: compar ed by SD to an age, sex, and ethnic ity popula tion (used for premen opausa l women, men <50 years, and childr en instea d of T-scor e WHO criter ia 4) <-2.0: below expect ed range/ low bone densit y for age, and a cause should be sought Electr onical ly Signed by: Madeleine Grijalva at 2023 11:39: 36 AM Page 2 [email or web address] [facility] (Imaging) [address] [place], [address], 03/07/2024 08:14:47 03/22/20 24 03/22/2024 CT, chest , w/ contr ast [facility] [address] [place] [address] Patien t Name: DANNI RAZO Access ion #: [id number] Sex: F : 1955 3 Dictat ed By: Elisabeth Lebron Attend ing Physic lazaro: AMY RUTLEDGE Physic lazaro: AMY RUTLEDGE Exam Date: 2023 15:09 PM Exam Name: CTA CHEST FOR PULMON THOMAS Admitt ing Diagno sis(es ): INDICA TION: shortn ess of breath COMPAR MATTIE: None TECHNI QUE: Multid etecto r CTA of the chest was perfor med of the chest with 100 cc of intrav enous contra st. PULMON THOMAS ANGIOG JORGE PROTOC OL was utiliz ed using a bolus- tracki ng techni que center ed on the main pulmon thomas artery . Axial, medeiros l and sagitt al multip lanar and MIP reform ats were perfor med. Radiat ion Dose : 1. Chest: CTDI volume is 10.5 mGy. Dose-l ength produc t is 379.3 mGy*cm The dose indica tors for CT are the volume Comput ed Tomogr aphy (CT) Dose Index (CTDIv ol) and the Dose Length Produc t (DLP), and are measur ed in units of mGy and mGy-cm , respec tively . These indica tors are not patien t dose, but values genera tana from the CT scanne r acquis ition factor s. The report includ es radiat ion exposu re data for exposu res receiv ed during this examin ation. Findin gs: The thyroi d gland is unrema rkable . No pulmon thomas emboli sm. No aortic aneury sm or dissec tion. Mild athero sclero tic calcif icatio n of the aorta. Ectati c appear ance of the origin of the SMA. Heart size is within normal limits . Calcif ied medias tinal and right hilar nodes with calcif ied right lower lobe nodule s consis tent with chroni c granul omatou s diseas e. Page 1 [facility] [address] [place] [address] Patien t Name: DANNI RAZO Access ion #: [id number] Sex: F : 1955 3 Dictat ed By: Elisabeth Lebron Attend ing Physic lazaro: [facility] Physic lazaro: AMY RUTLEDGE Exam Date: 2023 15:09 PM Exam Name: CTA CHEST FOR PULMON THOMAS Admitt ing Diagno sis(es ): No pneumo thorax , pleura l effusi on or focal airspa ce consol idatio n. Lingul a and left basila r atelec tasis. The soft tissue s unrema rkable . No destru ctive osseou s lesion s are noted. Multil evel modera te degene rative change s of the thorac ic spine. Calcif ied granul omas within the liver and spleen . Otherw ise, partia l view of the upper abdome n is unrema rkable . IMPRES ANURADHA: 1. No pulmon thomas emboli sm. 2. No acute intrat horaci c abnorm ality. 3. Sequel a of chroni c granul omatou s diseas e. Electr onical ly Signed by: Elisabeth Lebron at 2023 15:39: 05 PM Page 2 [email or web address] [facility] ([facility]) [address] [place], [address], 03/23/2024 13:59:26 Result Notes None recorded. Problems Name Problem SNOMED Code Status Onset Date Resolution Date Notes Provider Name and Address Organization Details Recorded Time Osteoarth ritis of right knee joint 50954566194 9100 Active 2022 Not Available [facility] 3 03:52:10 Abdominal pain 25576300 Active 2022 Not Available [facility] 3 03:52:10 Chronic abdominal pain 195387262 Active 2022 Not Available [facility] 3 03:52:10 Dysuria 97278730 Active 2022 Not Available [facility] 3 03:52:10 Cough 35590208 Active 2023 DUSTIN Hill, [place] [facility] [place] [employer] [facility] 4 17:09:19 Benign hypertens ion 43856780 Active 2019 Not Available [facility] 3 03:52:09 Achilles tendiniti s 61859658 Active 2017 Not Available [facility] 3 03:52:10 Plantar fasciitis of left foot 47773927794 649226 Active 2017 Not Available [facility] 3 03:52:10 Fracture of sacrum 201348039 Active 2021 Not Available [facility] 3 03:52:10 Acute sinusitis 97563324 Active 2021 Not Available [facility] 3 03:52:10 Nausea and vomiting 12530748 Active 2021 Not Available [facility] 3 03:52:10 Asthma 351567815 Active Not Available [facility] 3 03:52:10 Pure hyperchol esterolem ia 849276115 Active Not Available [facility] 3 03:52:10 Low back pain 791344266 Active 2021 Not Available [facility] 3 03:52:10 Knee pain Completed Not Available [facility] 3 04:49:41 Pain in left knee Active 2017 Not Available [facility] 3 03:52:10 Blood in urine 87364390 Completed Not Available [facility] 3 04:49:41 Vitamin D deficienc y 69985539 Active Not Available [facility] 3 03:52:10 Sinusitis 61779512 Active 2017 Not Available [facility] 3 03:52:10 Multiple bruising 550080151 Active Not Available [facility] 3 03:52:10 Osteoarth ritis 394871698 Active 2021 Not Available [facility] 3 03:52:10 Abrasion 965253177 Completed Not Available [facility] 3 04:49:42 Obesity 173954566 Active Not Available [facility] 3 03:52:10 Traumatic injury 726088096 Active 2021 Not Available [facility] 3 03:52:10 Nausea 833095003 Active 2021 Not Available [facility] 3 03:52:10 Acute urinary tract infection 961568587 Active 2021 Not Available [facility] 3 03:52:10 Type 2 diabetes mellitus 38750566 Active Not Available [facility] 3 03:52:10 Ganglion cyst 770745547 Active Not Available [facility] 3 03:52:10 Pain of bilateral knee joints 68811050926 4104 Active 2021 Not Available [facility] 3 03:52:10 Urinary tract infectiou s disease 80858012 Completed Not Available [facility] 3 04:49:43 COVID-19 341999089 Active 2021 Not Available [facility] 3 03:52:10 Problem Notes None recorded. Procedures Surgical History Date Name Laterality Status Provider Name and Address Organization Details Recorded Time 12/16/19 23 Medicare Wellness CPT Code, Initial completed DUSTIN Har[place] [facility] [place] [facility] 12/15/2022 15:48:02 12/22/19 21 Breast Surgery completed Not Available [facility] 07/06/2022 04:41:54 12/12/19 21 operation on breast completed Not Available [facility] 07/06/2022 04:41:54 01/23/20 19 Most Recent Mammogram completed Not Available [facility] 07/06/2022 04:41:51 06/13/19 18 Laparoscopic cholecystectomy completed Not Available [facility] 07/06/2022 04:41:54 01/31/20 15 Carpal tunnel surgery completed Not Available [facility] 07/06/2022 04:41:54 01/03/20 12 Date of Last Pap Smear completed Not Available [facility] 07/06/2022 04:41:51 10/25/19 06 Endoscopy completed Not Available [facility] 07/06/2022 04:41:54 08/13/18 98 CHEMICAL MANAGER Surgery completed Not Available [facility] 07/06/2022 04:41:54 07/04/18 96 CHEMICAL MANAGER Surgery completed Not Available [facility] 07/06/2022 04:41:54 01/21/19 87 CHEMICAL MANAGER Surgery completed Not Available [facility] 07/06/2022 04:41:54 01/02/19 87 CHEMICAL MANAGER Surgery completed Not Available [facility] 07/06/2022 04:41:54 operation on meniscus of the knee completed Not Available [facility] 07/06/2022 04:41:54 cervical laminectomy completed Not Available [facility] 07/06/2022 04:41:54 Imaging Results None recorded. Procedure Notes None recorded. Medical Equipment None Reported. Allergies Allergen ID Allergen Name Allergen Category Reaction Reaction Severity Criticality Documentation Date Start Date Code Code System Note Provider Name and Address Organization Details Recorded Time 7474 tetracycl ine medicatio n rash Not available Not available 07/06/2022 03449 RxNorm Not Available [facility] 3 05:00:50 7475 Symbicort medicatio n other Not available Not available 07/06/2022 66565 8 RxNorm throa t start s closi ng Not Available [facility] 3 05:00:50 Medications Name Sig Start Date Stop Date Status Note LastModified by Organization Details LastModified Time losartan 50 mg tablet TAKE 1 TABLET DAILY active Not Available Not Available No t Available cyclobenz aprine 10 mg tablet TAKE 1 TABLET BY MOUTH TWICE A DAY NEEDED active Not Available Not Available No t Available amoxicill in 500 mg capsule TK FOUR CS PO 1 HOUR B DAPP active Not Available Not Available No t Available neomycin- polymyxin -hydrocor t 3.5 mg/mL-10, 000 unit/mL-1 % ear solution 05/29 completed Not Available Not Available Not Available prednison e 10 mg tablet take [id number], [id number], 2y8bscs active Not Available Not Available No t Available gabapenti n 600 mg tablet Take 1 tablet 3 times a day by oral route as needed for 90 days. active Not Available Not Available No t Available cefuroxim e axetil 250 mg tablet 11/13 completed Not Available Not Available Not Available albuterol sulfate 2.5 mg/3 mL (0.083 %) solution for nebulizat ion Inhale 3 mL 3 times a day by nebuliza tion route. active Not Available Not Available No t Available atorvasta tin 10 mg tablet TAKE 1 TABLET EVERY MONDAY, Y AND MONDAY active Not Available Not Available No t Available azithromy january 250 mg tablet Take 1 dose pk by oral route as directed . 10/27 completed Not Available Not Available Not Available ibuprofen 800 mg tablet TAKE 1 TABLET BY MOUTH THREE TIMES DAILY active Not Available Not Available No t Available hydrocodo ne 5 mg-acetam inophen 325 mg tablet TAKE 1 TABLET BY MOUTH TWICE DAILY NEEDED active Not Available Not Available No t Available Keflex 500 mg capsule Take 1 capsule 3 times a day by oral route for 7 days. 08/24 completed Not Available Not Available Not Available ondansetr on HCl 8 mg tablet 05/31 completed Not Available Not Available Not Available ondansetr on HCl 4 mg tablet TAKE 1 TABLET 3 TIMES A DAY BY MOUTH NEEDED. 03/24 completed Not Available Not Available Not Available prednison e 20 mg tablet Take 2 tablets every day by oral route for 7 days. active Not Available Not Available No t Available Diflucan 150 mg tablet Take 1 tablet by oral route as directed for 1 day. 07/01 completed Not Available Not Available Not Available metronida zole 500 mg tablet TAKE 1 TABLET BY MOUTH THREE TIMES A DAY FOR 7 DAYS 03/24 completed Not Available Not Available Not Available acetamino phen 300 mg-codein e 30 mg tablet Take 1 tablet 3 times a day by oral route as needed. 05/31 completed Not Available Not Available Not Available sulfameth oxazole 800 mg-trimet hoprim 160 mg tablet 12/29 completed Not Available Not Available Not Available tramadol 50 mg tablet TAKE 1 TABLET THREE TIMES DAILY NEEDED 02/23 completed Not Available Not Available Not Available amoxicill in 500 mg tablet Take 1 tablet 3 times a day by oral route for 10 days. 12/02 completed Not Available Not Available Not Available ketorolac 10 mg tablet active Not Available Not Available Not Available meloxicam 7.5 mg tablet 05/31 completed Not Available Not Available Not Available oxycodone -acetamin ophen 5 mg-325 mg tablet 07/11 completed Not Available Not Available Not Available terbinafi ne HCl 250 mg tablet TAKE ONE TABLET DAILY 02/05 completed Not Available Not Available Not Available Zanaflex 4 mg tablet Take 1 tablet twice a day by oral route. 08/20 completed Not Available Not Available Not Available prednisol one acetate 1 % eye drops,hang pension 05/31 completed Not Available Not Available Not Available Kenalog 10 mg/mL suspensio n for injection in office 2022 active Not Available Not Available Not Avai lable Soma 350 mg tablet Take 1 tablet every day by oral route as needed. 02/09 completed Not Available Not Available Not Available hydrocodo ne 7.5 mg-acetam inophen 325 mg tablet Take 1 tablet 3 times a day by oral route as needed. active Not Available Not Available No t Available simvastat in 20 mg tablet TAKE 1 TABLET DAILY active Not Available Not Available No t Available metformin 1,000 mg tablet active Not Available Not Available Not Available Cipro 500 mg tablet Take 1 tablet twice a day by oral route for 7 days. 03/24 completed Not Available Not Available Not Available losartan 25 mg tablet TAKE 1 TABLET DAILY 05/29 completed Not Available Not Available Not Available hydrochlo rothiazid e 12.5 mg capsule 05/31 completed Not Available Not Available Not Available Advair Diskus 500 mcg-50 mcg/dose powder for inhalatio n Inhale 1 puff twice a day by inhalati on route. 06/29 completed Not Available Not Available Not Available Valtrex 1 gram tablet Take 1 tablet 3 times a day by oral route for 7 days. 08/24 completed Not Available Not Available Not Available gabapenti n 300 mg capsule 12/04 completed Not Available Not Available Not Available gentamici n 0.1 % topical cream active Not Available Not Available Not Available diclofena c sodium 75 mg tablet,de layed release TAKE 1 TABLET BY MOUTH TWICE DAILY WITH FOOD OR MILK active Not Available Not Available No t Available monteluka st 10 mg tablet TAKE 1 TABLET DAILY active Not Available Not Available No t Available hydrochlo rothiazid e 25 mg tablet 12/04 completed Not Available Not Available Not Available furosemid e 20 mg tablet TAKE ONE TABLET DAILY NEEDED 02/20 completed PT STOPPED TAKING IT Not Available Not Available Not Available gabapenti n 100 mg capsule Take 1 capsule 3 times a day by oral route. active Not Available Not Available No t Available azelastin e 137 mcg (0.1 %) nasal spray active Not Available Not Available Not Available cefuroxim e axetil 500 mg tablet Take 1 tablet every 12 hours by oral route for 7 days. active Not Available Not Available No t Available levofloxa january 500 mg tablet Take 1 tablet every 24 hours by oral route for 7 days. active Not Available Not Available No t Available levofloxa january 750 mg tablet TK 1 T PO QD 05/31 completed Not Available Not Available Not Available methylpre dnisolone 4 mg tablets in a dose pack take decreasi ng doses as directed 09/19 completed Not Available Not Available Not Available albuterol sulfate HFA 90 mcg/actua tion aerosol inhaler Inhale 2 puffs every 4 hours by inhalati on route. active Not Available Not Available No t Available Vitamin D2 1,250 mcg (50,000 unit) capsule TAKE 1 CAPSULE EVERY WEEK 05/31 completed Not Available Not Available Not Available ondansetr on 4 mg disintegr ating tablet Place 1 tablet 3 times a day by translin gual route as needed. 03/24 completed Not Available Not Available Not Available cefdinir 300 mg capsule TAKE 1 CAPSULE BY MOUTH TWICE A DAY FOR 7 DAYS active Not Available Not Available No t Available fluticaso ne propionat e 50 mcg/actua tion nasal spray,hang pension Inhale 2 sprays every day by intranas al route. 02/05 completed Not Available Not Available Not Available glipizide 5 mg tablet TAKE 2 TABLETS EVERY MORNING AND 1 TABLET EVERY EVENING 01/26 completed Not Available Not Available Not Available naproxen 500 mg tablet Take 1 tablet twice a day by oral route with meals for 30 days. active Not Available Not Available No t Available Microlet Lancet 06/23 completed Not Available Not Available Not Available amoxicill in 875 mg-potass ium clavulana te 125 mg tablet Take 1 tablet twice a day by oral route. active Not Available Not Available No t Available hydroxyzi ne pamoate 25 mg capsule Take 1 capsule twice a day by oral route as needed. 02/22 completed pt stopped taking because it made her fatigue Not Available Not Available Not Available cyclobenz aprine 5 mg tablet TAKE 1 OR 2 TABLETS THREE TIMES A DAY NEEDED active Not Available Not Available No t Available Restasis 0.05 % eye drops in a dropperet te INSTILL 1 DROP INTO AFFECTED EYE(S) BY OPHTHALM IC ROUTE EVERY 12 HOURS 06/11 completed Not Available Not Available Not Available rosuvasta tin 10 mg tablet Take 1 tablet every day by oral route. 02/05 completed pt stopped on her own Not Available Not Available Not Available Spiriva with HandiHale r 18 mcg and inhalatio n capsules Inhale 1 capsule every day by inhalati on route. 11/13 completed Not Available Not Available Not Available nitrofura ntoin monohydra te/macroc rystals 100 mg capsule TAKE 1 CAPSULE BY MOUTH TWICE A DAY FOR 5 DAYS 04/25 completed Not Available Not Available Not Available fluocinon danae 0.1 % topical cream 12/04 completed Not Available Not Available Not Available magnesium 2021 active Not Available Not Available Not Avai lable Vicodin 07/01 completed Not Available Not Available Not Available losartan 10mg Q daily 08/24 completed Not Available Not Available Not Available Centrum Silver 2021 active Not Available Not Available Not Avai lable Vitamin D3 2021 active Not Available Not Available Not Avai lable Ocuvite 2021 active Not Available Not Available Not Avai lable Contour Test Strips USE 1 STRIP twice daily active Not Available Not Available No t Available calcipotr iene-beta methasone 0.005 %-0.064 % topical ointment 06/12 completed Not Available Not Available Not Available lidocaine (PF) 5 mg/mL (0.5 %) injection solution In office injectio n administ ered by the provider 02/23 completed Not Available Not Available Not Available hydrochlo rothiazid e 12.5 mg tablet Take 1 tablet every day by oral route. 05/31 completed Not Available Not Available Not Available diclofena c 1 % topical gel 08/24 completed Not Available Not Available Not Available Synvisc-O ne 48 mg/6 mL intra-art icular syringe 05/29 completed Not Available Not Available Not Available Suprep Bowel Prep Kit 17.5 gram-3.13 gram-1.6 gram oral solution 06/12 completed Not Available Not Available Not Available ropivacai ne (PF) 5 mg/mL (0.5 %) injection solution in office 2022 active Not Available Not Available Not Avai lable EpiPen 2-Roberto 0.3 mg/0.3 mL injection , auto-inje ctor USE DIRECTED PER PACKAGE INSTRUCT IONS 05/29 completed Not Available Not Available Not Available Belviq 10 mg tablet Take 1 tablet twice a day by oral route. 02/09 completed Not Available Not Available Not Available Bydureon 2 mg/0.65 mL subcutane ous pen injector INJECT UNDER THE SKIN ONCE A WEEK active Not Available Not Available No t Available Spiriva Respimat 06/29 completed Not Available Not Available Not Available Spiriva Respimat 1.25 mcg/actua tion solution for inhalatio n 01/26 completed Not Available Not Available Not Available Narcan 4 mg/actuat ion nasal spray USE 1 SPRAY INTO NOSTRIL NEEDED FOR OPIOD DISTRESS 06/23 completed Not Available Not Available Not Available [facility] 02[facility]15 completed Not Available Not Available Not Available Xiidra 5 % eye drops in a dropperet te 06/29 completed Not Available Not Available Not Available ropivacai ne (PF) 100 mg/20 mL (5 mg/mL) 0.5 % injection syringe Take 15 mg by injectio n route. 06/29 completed Not Available Not Available Not Available Restasis MultiDose 0.05 % eye drops INSTILL 1 DROP INTO BOTH EYES TWICE A DAY active Not Available Not Available No t Available Fluvirin 3707-9256 45 mcg (15 mcg x 3)/0.5 mL intramusc ular suspensio n ADM 0.5ML IM UTD 03/14 completed Not Available Not Available Not Available Bydureon BCise 2 mg/0.85 mL subcutane ous auto-inje ctor INJECT 2 MG UNDER THE SKIN EVERY WEEK 12/02 completed Not Available Not Available Not Available Afluria Quad (PF) 60 mcg (15 mcg x 4)/0.5 mL IM syringe ADM 0.5ML IM UTD 10/09 completed Not Available Not Available Not Available Flucelvax Quad (PF) 60 mcg (15 mcg x 4)/0.5 mL IM syringe ADM 0.5ML IM UTD 08/24 completed Not Available Not Available Not Available Trelegy Ellipta 200 mcg-62.5 mcg-25 mcg powder for inhalatio n Inhale 1 puff every day by inhalati on route. active Not Available Not Available No t Available losartan potassium (bulk) 06/29 completed 50 mg Not Available Not Available Not Available BinaxNOW COVID-19 Ag Self Test kit USE DIRECTED 06/29 completed Not Available Not Available Not Available Paxlovid 300 mg (150 mg x 2)-100 mg tablets in a dose pack TAKE 2TABLETS OF NIRMATRE LVIR WITH 1TABLET OF RITONAVI R BY MOUTH TWICE A DAY FOR 5 DAYS active Not Available Not Available No t Available Mounjaro 7.5 mg/0.5 mL subcutane ous pen injector INJECT 7.5MG WEEKLY FOR 4 WEEKS THEN GO TO 10MG WEEKY FOR 4WEEKS 03/24 completed Not Available Not Available Not Available Mounjaro 5 mg/0.5 mL subcutane ous pen injector INJECT 0.5 MG SUBCUTAN EOUSLY WEEKLY 03/24 completed Not Available Not Available Not Available Mounjaro 15 mg/0.5 mL subcutane ous pen injector Inject 0.5 mL every week by subcutan eous route for 90 days. active Not Available Not Available No t Available Mounjaro 10 mg/0.5 mL subcutane ous pen injector INJECT THE CONTENTS OF 1 PEN UNDER THE SKIN ONCE WEEKLY 03/24 completed Not Available Not Available Not Available Mounjaro 12.5 mg/0.5 mL subcutane ous pen injector Inject 0.5 mL every week by subcutan eous route for 28 days. 03/24 completed Not Available Not Available Not Available Vitals Date Recorded Body height Body mass index (BMI) Body weight Body temperature Heart rate Systolic blood pressure Diastolic blood pressure Provider Name and Address Organization Details Last Updated DateTime 3 163.83 cm 38.9 kg/m2 517568. 25 g 97.9 [degF] 96 /min 130 mm[Hg] 72 mm[Hg] DUSTIN Hill [employer] 3 16:13:58 Date Recorded Body height Body mass index (BMI) Body weight Body temperature Heart rate Systolic blood pressure Diastolic blood pressure Provider Name and Address Organization Details Last Updated DateTime 3 163.83 cm 38.4 kg/m2 560265. 47 g 98 [degF] 89 /min 124 mm[Hg] 72 mm[Hg] DUSTIN Hill [employer] [facility] [employer] [facility] 3 15:51:57 Date Recorded Body height Provider Name an d Address Organization Details Last Updated DateTime 03/24/2023 163.83 cm Raquel Benson CHELIJody [facility] [employer] [facility] 03/24/2023 09:31:22 Date Recorded Body height Body mass index (BMI) Body weight Body temperature Respiratory rate Oxygen saturation Oxygen saturation in Arterial blood by Pulse oximetry Systolic blood pressure Diastolic blood pressure Provider Name and Address Organization Details Last Updated DateTime 3 163.83 cm 38.4 kg/m2 694095. 47 g 97.5 [degF] 16 /min 97 % 97 % 120 mm[Hg] 72 mm[Hg] Elsa Braulio [facility] [employer] [facility] 3 12:04:18 Date Recorded Body height Body mass index (BMI) Body weight Body temperature Heart rate Systolic blood pressure Diastolic blood pressure Provider Name and Address Organization Details Last Updated DateTime 3 163.83 cm 35 kg/m2 37225.6 2 g 97.3 [degF] 94 /min 124 mm[Hg] 74 mm[Hg] Sheeba Carroll Jody [facility] [employer] [facility] 3 14:49:46 Social History Question Answer Notes LastModified by Organizat ion Details LastModified Time Tobacco Smoking Status Never Smoker [facility] 04[facility]25/2023 14:36:26 Do You Have An Advance Directive? Yes Information not available 12/15/2022 Do You Wear A Helmet When Biking? No Information not available 04/25/2023 Are You Blind Or Do You Have Difficulty Seeing? No Information not available 04/25/2023 What Is Your Level Of Caffeine Consumption? Moderate [id number] Information not available 07/06/2022 How Much Tobacco Do You Chew? None [id number] Information not available 07/06/2022 In The 14 Days Before Symptom Onset, Have You Had Close Contact With A Laboratory-confir med COVID-19 While That Case Was Ill? No Information not available 04/25/2023 In The 14 Days Before Symptom Onset, Have You Had Close Contact With A Person Who Is Under Investigation For COVID-19 While That Person Was Ill? No Information not available 04/25/2023 Are You Deaf Or Do You Have Serious Difficulty Hearing? No Information not available 04/25/2023 What Type Of Diet Are You Following? REGULAR [id number] Information not available 07/06/2022 Which Illicit Or Recreational Drugs Have You Used? None Information not available 04/25/2023 What Is The Highest Grade Or Level Of School You Have Completed Or The Highest Degree You Have Received? [id number] Information not available 04/25/2023 Have There Been Any Changes To Your Family Or Social Situation? No Information no t available 04/25/2023 Are There Any Guns Present In Your Home? Yes Information not available 04/25/2023 Do You Use Insect Repellent Routinely? Yes Information not available 04/25/2023 Where [facility] You [facility]? [facility] Information not available 04/25/2023 Presence Of Domestic Violence No Information no t available 12/15/2022 Guns Present In The Home? Yes Information not available 12/15/2022 Are You Able To Care For Yourself? Yes Information not available 12/15/2022 Are You Blind Or Do Yo Have Difficulty Seeing? No Information not available 12/15/2022 Are You Deaf Or Do You Have Serious Difficulty Hearing? No Information not available 12/15/2022 General Stress Level? High Information not available 12/15/2022 Live Alone Of With Others? With Others Information not available 12/15/2022 Do You Have A Medical Power Of Counter Roller? Yes Information not available 04/25/2023 What Was The Date Of Your Most Recent Tobacco Screening? 04/25/2023 [email or web address] Information not available 04/25/2023 Have You Ever Been Counseled For Unhealthy Alcohol Use? No Information not available 04/25/2023 Do You Have Any Pets? No Information not available 04/25/2023 What Is Your Relationship Status? [id number] Information not available 07/06/2022 Do You Use Your Seat Belt Or Car Seat Routinely? Yes Information not available 04/25/2023 Do You Have Smoke And Carbon Monoxide Detectors In Your Home? Yes Information not available 04/25/2023 Are You Passively Exposed To Smoke? No Information no t available 04/25/2023 Are There Any Smokers In Your House? No Information not available 04/25/2023 How Much Tobacco Do You Smoke? No [id number] Information not available 07/06/2022 What Types Of Sporting Activities Do You Participate In? None Information not available 04/25/2023 Do You Use Sunscreen Routinely? Yes Information not available 04/25/2023 Has Tobacco Cessation Counseling Been Provided? No Information not available 04/25/2023 How Many Years Have You Smoked Tobacco? 0 Information not available 04/25/2023 Have You Recently Traveled Abroad? No Information not available 04/25/2023 Do You Have Difficulty Walking Or Climbing Stairs? No Information not available 04/25/2023 Do You Have Any Dietary Restrictions? No Information not available 04/25/2023 Sex: Female Functional Status Question Answer Note LastModified by [employer] ion Details LastModified Time Do you use any illicit or recreational drugs? No Information not available 04/25/2023 Do you or have you ever used any other forms of tobacco or nicotine? No Information not available 04/25/2023 What is your level of alcohol consumption? None Information not available 12/15/2022 Do you or have you ever used smokeless tobacco? Never used smokeless tobacco [id number] Information not available 07/06/2022 Do you have transportation difficulties? No Information not available 04/25/2023 Are you able to walk? YESWOREST Information not available 04/25/2023 Do you have difficulty doing errands alone? No Information not available 04/25/2023 Are you able to care for yourself? Yes Information n ot available 04/25/2023 What is your occupation? retired Information not available 04/25/2023 Do you have difficulty dressing or bathing? No Information not available 04/25/2023 Do you or have you ever used e-cigarettes or vape? Never used electronic cigarettes Information not available 04/25/2023 What is your exercise level? Occasional [id number] Information not available 07/06/2022 Mental Status Question Answer Note LastModified by Organizat ion Details LastModified Time Do you feel stressed (tense, restless, nervous, or anxious, or unable to sleep at night)? [id number] Information not available 04/25/2023 Do you have difficulty concentrating, remembering or making decisions? No Information no t available 04/25/2023 Family History Relationship Description Onset Age of this Age Resolved Age Notes LastModified by Organization Details LastModified Time Sister Malignant tumor of breast 69 [id number] Not available 07/06/2022 04:41:58 Unspecified Relation Family history of diabetes mellitus [id number] Not available 07/06/2022 04:41:58 Unspecified Relation Family history of alcoholism [id number] Not available 07/06/2022 04:41:58 Brother Family history of cancer of colon 79 [id number] Not available 07/06/2022 04:41:58 Brother Malignant neoplasm of lung 69 69 [id number].081 [id number] Not available 07/06/2022 04:41:58 Brother Malignant neoplasm of lung 17 [id number].395 [id number] Not available 07/06/2022 04:41:58 Brother Congestive heart failure 79 [id number] Not available 07/06/2022 04:41:58 Notes:FAMILY HX ALCOHOL ABUS E Medical History Condition Response NERVE DISEASE N BLINDNESS N RHEUMATIC FEVER N KIDNEY STONES N BLADDER PROBLEMS N MRSA N CARPAL TUNNEL SYNDROME N OTHER # 1 N POLIO N LUNG DISEASE/DISORDER Y HISTORY OF DRUG ABUSE N RADIATION / CHEMOTHERAPY N COPD N Other # 2 N SPORTS INJURY N ANKLE PAIN N BLOOD DISEASES N SURGERY N EAR OR HEARING PROBLEMS N MUMPS Y SCHIZOPHRENIA N SHINGLES N SHOULDER PAIN N DEPRESSION (INCLUDING POST ) N BOWEL PROBLEMS N STROKE/TIA N ULCERS N KNEE PAIN N BENIGN PROSTATIC HYPERPLASIA N MEASLES Y MYOCARDIAL INFARCTION N OBESITY N GERD/NAUSEA N ANEURYSM N URINARY/BLADDER/KIDNEY PROBLEMS N CORONARY ARTERY DISEASE (CAD) N ADDICTION CONCERNS N Impotence N ENDOMETRIOSIS N USE OF BLOOD THINNERS N SKIN PROBLEMS N EMPHYSEMA N GASTROINTESTINAL DISORDER N PERIPHERAL VASCULAR DISEASE N MUSCLE,JOINT OR BONE PROBLEMS N DVT N STOMACH ULCERS N GASTROINTESTINAL BLEEDING N BLOOD CLOTS Y ASTHMA Y CATARACTS N USE OF NSAIDS N CONCUSSION OR SPINAL TRAUMA N ERECTILE DYSFUNCTION N VARICOSITIES N GI PROBLEMS N Low Testosterone N NEUROPATHY N INFERTILITY N AIDS/HIV N FRACTURES N CHEMOTHERAPY / RADIATION N LIVER DISEASE N MALE HYPOGONADISM N HYPERTENSION N ELBOW PAIN N Deficiency Y TOURETTE'S N Metal allergy N ANXIETY DISORDER N BLOOD TRANSFUSION N ANEMIA/BLOOD DISORDER N CHRONIC EAR INFECTIONS N BIPOLAR DISORDER N BRONCHITIS N OSTEOARTHRITIS N TUBERCULOSIS N GLAUCOMA N FOOT PROBLEM N HEART VALVE DISORDERS N DIVERTICULITIS N SLEEP APNEA N CHICKENPOX Y SOFT TISSUE INJURY N ALLERGIES/HAYFEVER N INFECTIOUS DISEASE N PROSTATE N HEART ARRHYTHMIA N INSOMNIA N RHEUMATOID ARTHRITIS N HIGH CHOLESTEROL / HYPERLIPIDEMIA N HYPERTHYROIDISM N EYE PROBLEMS N NEUROLOGICAL PROBLEMS N EDEMA N CHRONIC PAIN SYNDROME N HYPOTHYROIDISM N CAROTID BLOCKAGE N CONSTIPATION N BACK / NECK PROBLEMS N HAVE YOU BEEN HOSPITALIZED OR SEEN IN [facility] IN THE PAST YEAR ? N ATHEROSCLEROSIS N BURSITIS N BREAST PROBLEMS Y HERNIATED DISC N DIALYSIS N ECZEMA N FIBROMYALGIA N OSTEOPOROSIS N ARTHRITIS Y NO SIGNIFICANT PAST MEDICAL HISTORY N PERIPHERAL NEUROPATHY N APPENDICITIS N DIABETES, TYPE Y BAD TEETH N ENT N HEARTBURN / REFLUX N AFIB N AUTISM SPECTRUM DISORDER (ASD) N HEPATITIS / LIVER DISEASE N GOUT N SLEEP DISORDER N ALZHEIMER'S DISEASE N Brain Problems N DEMENTIA N HERPES N SEIZURES/EPILEPSY N HEADACHES/MIGRAINES N VASCULAR DISEASE N PACEMAKER N Blood Disorder N HIP PAIN N DIZZINESS N HEAD TRAUMA OR INJURY N KIDNEY DISEASE N HEART DISEASE/HEART PROBLEMS N MULTIPLE SCLEROSIS N CANCER: SPECIFY Y CARDIAC ARRHYTHMIA N ANESTHESIA COMPLICATIONS N ATRIAL FIBRILLATION N Gall Stones N PULMONARY EMBOLISM N AUTOIMMUNE DISEASE N Gynecological History Statement/Question Response Abnormal Pap Y Date of Last Mammogram 01/22/2019 Date of Last Colonoscopy Most Recent Bone Density Date of Last Pap 01/03/2012 Date of Last Pap Smear 01/03/2012 Current Control Method Hysterectom y Most Recent Mammogram 01/22/2019 Obstetrics History GPAL:G 3 P 3 0 0 3 Type Value Full Term 3 Living 3 Total 3 Immunizations Vaccine Type Date Status Note Provider Nam e and Address Organization Details Recorded Time influenza, unspecified formulation 3 completed Not Available [facility] 03:52:10 SARS-COV-2 (COVID-19) vaccine, UNSPECIFIED 3 completed Not Available [facility] 04/19/2023 03:52:10 Influenza, split virus, quadrivalent, PF 5 completed Not Available [facility] 04/19/2023 03:52:11 Influenza, split virus, trivalent, preservative 3 completed Not Available [facility] 04/19/2023 03:52:10 COVID-19, mRNA, LNP-S, PF, 30 mcg/0.3 mL dose 1 completed Not Available [facility] 04/19/2023 03:52:10 COVID-19, mRNA, LNP-S, PF, 30 mcg/0.3 mL dose 1 completed Not Available [facility] 04/19/2023 03:52:10 COVID-19, mRNA, LNP-S, PF, 30 mcg/0.3 mL dose 2 completed Not Available [facility] 04/19/2023 03:52:10 Influenza, high-dose, quadrivalent, PF 2 completed Not Available [facility] 04/19/2023 03:52:10 COVID-19, mRNA, LNP-S, PF, 30 mcg/0.3 mL dose 1 completed Not Available [facility] 04/19/2023 03:52:10 Influenza, split virus, quadrivalent, preservative 7 completed Not Available [facility] 04/19/2023 03:52:10 Influenza, split virus, quadrivalent, PF 1 completed Not Available [facility] 04/19/2023 03:52:11 pneumococcal polysaccharide PPV23 0 completed Not Available [facility] 04/19/2023 03:52:10 Influenza, split virus, quadrivalent, PF 9 completed Not Available [facility] 04/19/2023 03:52:10 Influenza, split virus, quadrivalent, PF 8 completed Not Available [facility] 04/19/2023 03:52:10 Influenza, split virus, quadrivalent, PF 6 completed Not Available [facility] 04/19/2023 03:52:11 Pneumococcal conjugate PCV 13 4 completed Not Available [facility] 04/19/2023 03:52:10 Influenza, split virus, trivalent, PF 4 completed Not Available [facility] 04/19/2023 03:52:10 Past Encounters Encounter ID Performer Location Encounter Start Date Encounter Closed Date Diagnosis/Indication Diagnosis SNOMED-CT Code Diagnosis ICD10 Code Diagnosis Note [id number] Thomas Rutledge MD [facility] Internal Med [facility] 15 [facility] [address] [address] 08/24/2020 00:00:00 08/29/2020 21:10:08 [id number] Thomas Rutledge MD S_[facility] Internal Med [facility] [address] [place] [address], [address] [address] 10/14/2020 00:00:00 10/14/2020 22:05:24 [id number] S_[facility] ic_[facility] _ATHENA_M IGRATION_ DEFAULT_1 _1 , 12/29/2020 00:00:00 12/29/2020 11:26:40 [id number] Thomas Rutledge MD [facility] Internal Med [facility] 2043 [facility], [address] [address] 02/22/2021 00:00:00 02/22/2021 23:20:37 [id number] Theron Moore MD S_G [address] [place] [address] 06/23/2021 00:00:00 08/01/2021 14:22:33 [id number] Thomas Rutledge MD [facility] Internal Med [facility] [address] [facility] [address] [address] 06/30/2021 00:00:00 07/03/2021 21:07:59 [id number] Thomas Rutledge MD [facility] Internal Med [facility] [address] [facility] [address] [address] 09/07/2021 00:00:00 09/26/2021 17:57:47 [id number] Thomas Rutledge MD S_[facility] Internal Med [facility] [address] [place] [address]., [address] [address] 10/27/2021 00:00:00 10/27/2021 21:34:25 [id number] Theron Moore MD [facility] [place] [address] [place] [address] 11/05/2021 00:00:00 11/05/2021 11:06:09 [id number] Thomas Rutledge MD [facility] Internal Med [facility] [address] [place] [address], [address] [address] 12/22/2021 00:00:00 12/22/2021 21:54:30 [id number] Theron Moore MD [facility] [place] [address] [place] [address] 02/04/2022 00:00:00 02/04/2022 10:03:30 [id number] Thomas Rutledge MD S_[facility] Internal Med [facility] 15 [address] [facility], [address] [address] 02/23/2022 00:00:00 04/05/2022 22:35:55 [id number] Theron Moore MD S[facility] [place] [address] [place] [address] 04/08/2022 00:00:00 04/08/2022 09:27:19 [id number] Theron Moore MD [facility] [place] [address] [place] [address] 04/22/2022 00:00:00 04/22/2022 10:47:22 [id number] Thomas Rutledge MD S_[facility] Internal Med [facility] [address] [place], [place] [address]e., [facility] 15 [place] [address] 06/29/2022 00:00:00 06/30/2022 09:26:11 [id number] Theron Moore MD [facility] [place] [address] [place] [address] 09/02/2022 09:51:43 09/05/2022 10:27:51 Osteoarthritis of right knee joint 5265251496 16658 M17.11 [id number] Thomas Rutledge MD [facility] Internal Med [facility] 15 [address] [facility] 15 [place] [address] 10/26/2022 11:03:01 10/26/2022 12:29:07 Benign hypertension [id number] I10 Type 2 trice betes mellitus 44726011 E11.9 Asthma 080057454 J45.90 9 Obesity 858490790 E66.9 [id number] Theron Moore MD [facility] [place] [address] [place] [address] 12/02/2022 08:53:02 12/02/2022 09:48:51 Osteoarthritis of right knee joint 6470639765 45584 M17.11 [id number] Thomas Rutledge MD [facility] Internal Med [facility] [address] [facility] , [place] [address] 12/15/2022 14:14:56 12/15/2022 15:29:49 Type 2 diabetes mellitus 28061480 E11.9 Adult [facility] examination 162922695 Z00.00 Screening for disorder 924379872 Z13.9 Benign hypertension 1072 5009 I10 Asthma 310374523 J45.90 9 Obesity 806246228 E66.9 [id number] Thomas Rutledge MD [facility] Internal Med [facility] [address] [facility] , [place] [address] 01/26/2023 15:58:17 01/26/2023 17:59:14 Abdominal pain 00011556 R10.9 [id number] Thomas Rutledge MD [facility] Internal Med [facility] [address] [facility] 15 [place] [address] 02/06/2023 15:31:47 02/06/2023 16:58:25 Abdominal pain [id number] R10.9 [id number] Theron Moore MD [facility] [place] [place] [address] [place] [address] 03/24/2023 09:28:38 03/24/2023 10:07:58 Osteoarthritis of right knee joint [id number] 14459 M17.11 [id number] Jaydon gutierrez MD [facility] General Surgery [address] [place] [address] 04/13/2023 11:36:00 04/13/2023 13:59:37 Abdominal pain [id number] R10.9 [id number] Thomas Rutledge MD [facility] Internal Med Mitch de souza [address] [facility] , [facility] [place] [address] 04/25/2023 14:36:18 04/25/2023 15:52:04 Benign hypertension 30014877 I10 Type 2 trice betes mellitus 02838080 E11.9 Pure hypercholesterolemia 744949872 E78.00 Osteoarthritis 284934629 M17.0 Asthma 322802243 J45.90 9 Health Concerns Section Related Observation LastModified by Organization Detai ls LastModified Time None Recorded Concern Status LastModified by Organization Details LastModified Time None Recorded Advance Directives Directive Y: Payers Encounter Date Sequence Insurance Name Policy Number Policy Ponce Covered Member ID Ponce Member ID Guarantor Name 01/26/2023 1 [place] Silvina L Luckshis [id number] 2 Silvina L Luckshis 01/26/2023 2 [place] [id number] Silvina L Luckshis [id number] Silvina L Luckshis 02/06/2023 [place] Silvina L Luckshis [id number] Silvina L Luckshis 02/06/2023 2 [place] [id number] Silvina L Luckshis [id number] Silvina L Luckshis 03/24/2023 1 [place] Silvina L Luckshis [id number] Silvina L Luckshis 03/24/2023 2 [place] [id number] Silvina L Luckshis [id number] Silvina L Luckshis 04/13/2023 1 [place] Silvina L Luckshis [id number] Silvina L Luckshis 04/13/2023 2 [place] [id number] Silvina Bales [id number] Silvina Bales 04/25/2023 1 [place] Silvina Bales [id number] Silvina Bales 04/25/2023 2 [place] [id number] Silvina Bales [id number] Silvina Bales Notes Date Note Type Note Provider Name and Address Organization Details Recorded Time 01/26/2023 text/html few days now of pain down left lower quadrant feels changes bowel habits fever chills also a little bit pain in her left triceps area genitourinary complaints Thomas Rutledge MD [address] [employer], [place], [address], [employer] [facility] [employer] 01/26/2023 22:30:07 02/06/2023 text/html Still with dull discomfort unclear fever chills pain left flank and in the abdomen area anteriorly no change in bowel habits Thomas Rutledge MD [address], [place], [address], [employer] 02/12/2023 13:54:50 04/13/2023 text/html Patient complain s of abdominal wall pain several weeks ago now has resolved. Has a hard spot on the left side of her belly button she states but is not painful anymore. Denies nausea vomiting fevers chills or any other constitutional symptoms. Jaydon Cardona MD [address], [place], [address], [employer] 04/13/2023 12:52:51 04/25/2023 text/html diabetes sugars have been pretty decent asthma stable hypertension no headache or dizziness obesity struggling Thomas Rutledge MD [address], [place], [address], [employer] 04/28/2023 23:12:40 OBGyn Episode No OBEpisode recorded.
[2024-10-08] MEDS: TETANUS,DIPHTHERIA,AC PERTUSSIS ADULT (0.5 ML) BOOSTRIX IM (14:47)
--- NOTE | 2024-10-08 14:55 | ED.WOUNDLAC ---
HPI - Wound/Laceration General Chief Complaint: Wound/Laceration Stated Complaint: left hand lac Time Seen by Provider: 10/08/24 13:56 History of Present Illness HPI narrative: Patient was using a metal box maker when she slipped and sliced open her left palm. Went to urgent care who sent her to the ER Related Data Home Medications ?Medication ?Instructions ?Recorded ?Confirmed ?Last Taken ?Type albuterol sulfate 90 mcg/actuation 1 inh inhalation Q4-6H PRN 04/16/20 03/06/24 Unknown History breath activated powder inhaler,sensor (Proair Digihaler) cholecalciferol (vitamin D3) 10 10 mcg PO DAILY 04/16/20 03/06/24 Unknown History mcg (400 unit) capsule gabapentin 600 mg tablet 600 mg PO TID 04/16/20 03/06/24 Unknown History metformin 1,000 mg tablet 1,000 mg PO BID 04/16/20 03/06/24 Unknown History vit C,E,zinc,copper-nahdx4v 250 1 cap PO DAILY 04/16/20 03/06/24 Unknown History mg-lutein 5 mg-zeaxanthin 1 mg capsule (Ocuvite Adult 50 Plus) cyclobenzaprine 10 mg tablet 10 mg PO TID 03/06/24 03/06/24 Unknown History diclofenac sodium 75 mg 75 mg PO BID 03/06/24 03/06/24 Unknown History tablet,delayed release magnesium oxide 500 mg PO DAILY 03/06/24 03/06/24 Unknown History tirzepatide 15 mg/0.5 mL 15 mg subcut WEEKLY 03/06/24 03/06/24 Unknown History subcutaneous pen injector (Mounjaro) Allergies Allergy/AdvReac Type Severity Reaction Status Date / Time tetracycline Allergy Mild Hives Verified 03/06/24 08:07 budesonide (From Symbicort) Allergy throat Verified 03/06/24 08:07 swells formoterol (From Symbicort) Allergy throat Verified 03/06/24 08:07 arabella Review of Systems Review of Systems: All systems reviewed & are unremarkable except as noted in HPI and below PMFSH Past Medical History Medical History Asthma Blood clot in vein (1986) blood clots legs/lung post delivery Breast cyst Diabetes Fractured coccyx High cholesterol Hypertension Kidney stone (2008) Vitamin D deficiency Surgical History Surgical History History of breast surgery (12/21/20) left breast cyst removed--benign, done at [facility] History of carpal tunnel surgery of right wrist (01/30/15) removed ligament, rebuild thumb History of cholecystectomy (06/13/17) History of dilation and curettage 01/02/87 hscope d&c/left ovarian cyst drained History of endoscopy (10/24/05) History of exploratory laparotomy (08/13/97) Laparoscopic pelvic examination, attempt at pelviscopy, exploratory laparotomy, LSO - pelvic adhesions, left ovarian cyst - hemorrhagic involuting corpus luteum - History of laminectomy cervical fusion of C4-C7 History of laparoscopy (07/04/95) laparoscopic pelvic examination, needle bx of ovarian cyst, bx left ovary History of right knee surgery (2015) torn rt knee miniscus History of total vaginal hysterectomy (TVH) (01/21/87) TVH, drained right ovarian simple cyst--chronic cervicitis, fibroids Family History Family History Sibling Breast cancer sister Lung cancer Brothers x2 Congestive heart failure brother Carcinoma of colon brother Social History Social History (Updated 03/06/24 @ 08:07 by DUSTIN Correia) Smoking status: Never smoker Second hand tobacco smoke exposure: Yes Alcohol intake: never Substance use: never Substance use type: does not use Do You Feel Safe in your Home?: Yes Lack of Transportation: No Lack of Food: Never True Current Housing: I Have Housing Concerned About Future Housing: No Difficulty Paying Gas/Electric Bills: No Difficulty Paying for Meds: No Currently Unemployed: No Education: High School Diploma/GED Difficulty w/ Childcare or Family Care: No Living arrangements: other Additional living arrangements comments: Occupation/Education: retired Gender identity (if verbalized by the patient): Female Sexual Orientation (if Verbalized by the Patient): Straight or Heterosexual Exam Narrative: EXAMINATION OF ORGAN SYSTEMS/BODY AREAS: Constitutional: Vital signs per nursing GENERAL:[No acute distress, non-toxic appearing.] HEAD: Normal with no signs of head trauma. EYES: EOMI, conjunctiva normal ENT: Hearing grossly intact LUNGS: Nonlabored breathing. HEART: [Regular rate and rhythm] ABD: [Soft], [nontender to palpation] EXT: Full intact range of motion to left thumb including adduction SKIN: 3 cm linear laceration across the palm of left hand, oozing blood NEURO: [Alert and oriented x 3. No gross focal sensory or strength deficits.] PSYCH: Normal affect Course Vital Signs Vital signs: Vital Signs Temperature 97.6 F 10/08/24 13:37 Pulse Rate 80 10/08/24 13:37 Respiratory Rate 16 10/08/24 13:37 Blood Pressure 143/70 H 10/08/24 13:37 Pulse Oximetry 100 10/08/24 13:37 Oxygen Delivery Room Air 10/08/24 13:37 Temperature 97.6 F 10/08/24 13:37 Pulse Rate 80 10/08/24 13:37 Respiratory Rate 16 10/08/24 13:37 Blood Pressure 143/70 H 10/08/24 13:37 Pulse Oximetry 100 10/08/24 13:37 Oxygen Delivery Room Air 10/08/24 13:37 Procedures Laceration Laceration 1: Date: 10/08/24 Time: 14:57 Site: hand Side (If applicable): left Size (cm): 3 Description: linear Depth: simple, single layer Local Anesthetic: lidocaine 1% and with epi Amount of anesthesia used (mL): 3 Pre-repair: wound explored, irrigated and deep structures intact ====== Skin Level ====== Skin layer closed with: nylon Size (cm): 4-0 Number of sutures: 3 Technique: simple, interrupted ====== Subcutaneous Layer ====== ====== Muscle Layer ====== ====== Tendon Layer ====== MDM - Wound/Laceration MDM Narrative Medical decision making narrative: Patient presents with cut across her palm, is still oozing here so pressure dressing applied which did control/stop the bleeding. Laceration cleaned, numbed, sutured, patient tolerated this well, wound was dressed afterwards, follow-up instructions provided with return precautions Discharge Plan Discharge Clinical Impression: Laceration Patient Disposition: Home Condition: Stable Instructions: Care For Your Stitches (ED), Laceration (ED) Additional Instructions: You had 3 sutures placed today. Please follow-up with your doctor or any urgent care or come back here for removal of your sutures in 12-14 days. You can always return to the emergency room for any further issues. Please keep the wound clean. Patient Language: Chinese Prescriptions: No Action metformin 1,000 mg tablet 1,000 mg PO BID Proair Digihaler 90 mcg/actuation aero powdr breath act w/sensor 1 inh inhalation Q4-6H PRN Ocuvite Adult 50 Plus 250-5-1 mg capsule 1 cap PO DAILY cholecalciferol (vitamin D3) 10 mcg (400 unit) capsule 10 mcg PO DAILY gabapentin 600 mg tablet 600 mg PO TID magnesium oxide 500 mg magnesium tablet 500 mg PO DAILY diclofenac sodium 75 mg tablet,delayed release (DR/EC) 75 mg PO BID Mounjaro 15 mg/0.5 mL pen injector 15 mg subcut WEEKLY cyclobenzaprine 10 mg tablet 10 mg PO TID Follow-up/Referrals: Aamir,MD Eligio [Primary Care Provider] - 2 Weeks
--- OUTSIDE RECORDS SUMMARY | 2024-10-08 15:07 | XMS_ITS | Clinical Summary ---
Author Organization [facility] [address] [facility] Address [address] [place] [address] Care Team Providers Care Trade Mark Attorney Name Role Phone Eligio Rutledge MD Primary Care Provider [phone] Allergies Active Allergy Reactions Criticality Noted Date [...] mcg 2 (two) times a day Active lb-lz-LA-vit I-bgbkp-zulr-zeax (Ocuvite Eye Plus Multi) 200-15-150 mcg tablet [...] on file Legal Sex Female 5:29 AM PROCEDURE MANAGER Gender Identity Female 11/24/2020 9:11 AM CDT [...] Read Routine (OP Routine) 06/05/2024 11:38 AM PROCEDURE MANAGER Screening mammogram, encounter for from Last 3 Months or Most Recently Relevant to Health Maintenance Results * Screening Mammogram Bilateral W Yaw (06/05/2024 11:38 AM PROCEDURE MANAGER) Anatomical Region Laterality Modality Breast Bilateral Mammography Narrative 06/05/2024 12:08 PM PROCEDURE MANAGER Mammogram Technique: Bilateral Digital Breast Tomosynthesis, Bilateral C-view 2D Screening mammogram. Views obtained: bilateral craniocaudal and bilateral mediolateral oblique. Computer Aided Detection was performed. Mammogram Findings: The present examination has been compared to prior imaging studies performed at [facility] on 10/15/2020, 12/13/2021 and 04/03/2023. The [...] compared to prior imaging studies performed at [facility] on 10/15/2020, 12/13/2021 and 04/03/2023. The breasts are almost entirely fatty. There is no suspicious abnormality in either breast. Impression: There is no mammographic evidence of malignancy. Annual screening mammography is recommended. OVERALL FINAL ASSESSMENT: BI-RADS CATEGORY 1: Negative. us Self Screening Mammogram IMG MAMMO PROCEDURES Fi nal Result from Last 3 Months or Most Recently Relevant to Health Maintenance Insurance MEDICARE [facility] OOS [facility] ACCESS BLUE ACCESS OOS MEDICARE BLUE TRADITIONAL OOS Care Teams Trade Mark Attorney Relationship Specialty Start Date End Date Eligio Rutledge MD PCP - General 05/06/17
--- OUTSIDE RECORDS SUMMARY | 2024-10-08 15:07 | XMS_ITS | Referral Summary ---
Author Organization [facility] [address] [facility] Address [address] [place] [address] Care Team Providers Care Retail Consultant Name Role Phone Eligio Rutledge MD Primary [...] mcg 2 (two) times a day Active ig-by-UN-vit H-mweoj-gatu-zeax (Ocuvite Eye Plus Multi) 200-15-150 mcg tablet [...] on file Legal Sex Female 5:29 AM SATELLITE DISH INSTALLER Gender Identity Female 11/24/2020 9:11 AM CDT [...] Read Routine (OP Routine) 06/05/2024 11:38 AM SATELLITE DISH INSTALLER Screening mammogram, encounter for from Last 3 Months or Most Recently Relevant to Health Maintenance Results * Screening Mammogram Bilateral W Yaw (06/05/2024 11:38 AM SATELLITE DISH INSTALLER) Anatomical Region Laterality Modality Breast Bilateral Mammography Narrative 06/05/2024 12:08 PM SATELLITE DISH INSTALLER Mammogram Technique: Bilateral Digital Breast Tomosynthesis, Bilateral C-view 2D Screening mammogram. Views obtained: bilateral craniocaudal and bilateral mediolateral oblique. Computer Aided Detection was performed. Mammogram Findings: The present examination has been compared to prior imaging studies performed at [facility] on 10/15/2020, 12/13/2021 and 04/03/2023. The breasts [...] compared to prior imaging studies performed at [facility] on 10/15/2020, 12/13/2021 and 04/03/2023. The breasts are almost entirely fatty. There is no suspicious abnormality in either breast. Impression: There is no mammographic evidence of malignancy. Annual screening mammography is recommended. OVERALL FINAL ASSESSMENT: BI-RADS CATEGORY 1: Negative. us Self Screening Mammogram IMG MAMMO PROCEDURES Fi nal Result from Last 3 Months or Most Recently Relevant to Health Maintenance Insurance MEDICARE [facility] OOS ANTHEM ACCESS BLUE ACCESS OOS MEDICARE BLUE TRADITIONAL OOS Care Teams Retail Consultant Relationship Specialty Start Date End Date Eligio Rutledge MD PCP - General 05/06/17
--- OUTSIDE RECORDS SUMMARY | 2024-10-08 15:07 | XMS_ITS | CONTINUITY OF CARE DOCUMENT ---
Author Name mary shantaestela Address Unknown Organization [facility] Address [address] [place] [address] Phone [phone] Care Team Providers Care Product Inspection Coordinator Name Role Phone Anthony CABRERA, Florentin Unavailable THOMAS HARVEY MD Unavailable [phone] THOMAS JENSEN MD Unavailable PROBLEMS Condition Status Date Provider Notes SHORTNESS OF BREATH active Florentin Cruz MD ASTHMA active Florentin Cruz MD HTN HEART DISEASE W/O CHF active Florentin wilkes MD Hypercholesterolemia, mixed active Nika silva SLEEP APNEA active Florentin Cruz MD Chest pain-type to be determined active Rajendra Cruz MD ENCOUNTERS Date Type Provider Location Encounter Diag nosis - In-person encounter Office Visit Florentin Cruz MD [facility] Office - In-person encounter Office Visit Florentin Cruz MD [place] [facility] - In-person encounter Office Visit Florentin Cruz MD [place] - In-person encounter Office Visit Florentin Cruz MD [place] [facility] - In-person encounter Office Visit Florentin Cruz MD [facility] Office - In-person encounter Office Visit Florentin Cruz MD [place] [facility] Chest pain-type to be determined - In-person encounter Office Visit Florentin Crzu MD [place] [facility] SHORTNESS OF BREATHASTHMAHTN HEART DISEASE W/O CHFHypercholesterolemia , mixedSLEEP APNEA VITAL SIGNS Date Observation Value Provider Body Mass Index (Ratio) 29.57 kg/m2 Ricki Cruz MD blood pressure, diastolic 74 mm[Hg] Evaristo carlos a [place] blood pressure, systolic 134 mm[Hg] Annemarie moran [place] oxygen saturation, oximetry 99 % [facility] 77 /min [facility] [place] blood pressure, cuff size regular Evaristo carlos a [place] weight E&M 183.2 [lb_av] [facility] [place] height E&M 66 [in_i] [facility] [place] Body Mass Index (Ratio) 43.90 [...] pressure, diastolic 72 mm[Hg] Sh cassy Atiya LANDSCAPE ACCOUNT MANAGER blood pressure, systolic 132 mm[Hg] She rry Atiya LANDSCAPE ACCOUNT MANAGER oxygen saturation, oximetry 97 % Reilly Tomas respiratory rate E&M 18 /min Ju Tomas pulse rate 82 /min Nannette Atiya LANDSCAPE ACCOUNT MANAGER weight E&M 278.6 [lb_av] Reilly burris height [...] Cassidy 7 HDL cholesterol, serum 57 mg/dL [facility] cholesterol/HDL ratio, serum 2 [facility] 7 lipoprotein, beta, serum, point, quantitative, calculated 66 mg/dL [facility] 7 cholesterol, serum 141 mg/dL [facility] 7 international normalized ratio (INR) 0.9 [facility] creatinine, serum 0.6 mg/dL [facility] 7 potassium, serum 4.0 mmol/L [facility] 7 sodium, serum 140 mmol/L [facility] HISTORY OF MEDICATION USE Medication Status [...] social history E&M Marital Statu s: Grecia pagan has never smoked. Smoking History: Grecia pagan [...] Payer name Policy type / Coverage type [place] red republican ID [facility] [id number] 1 [place] Medicare [id number] ADVANCE DIRECTIVES Name Date DISCUSSED - NO [...] tatus EKG Florentin Cruz MD completed SNOMED-CT: 15238088 Physical Exam, Performed: Pulse Exam of Foot Florentin Cruz MD completed SNOMED-CT: 779351927 340270 Current Medications Documented Florentin Cruz MD completed SNOMED-CT: 35551768 Physical Exam, Performed: Pulse Exam of Foot Florentin Cruz MD completed EKG Florentin Cruz MD completed SNOMED-CT: 076966620 918623 Current Medications Documented Florentin Cruz MD completed EKG Florentin Cruz MD completed
--- OUTSIDE RECORDS SUMMARY | 2024-10-08 15:07 | XMS_ITS | Encounter Summary ---
Author Organization [facility] Address [address] [place] [address] Phone Care Team Providers Care Broke Handler Name Role Phone Eligio Rutledge MD Primary Care Provider Encounter Details Date Type Department Care Team (Late st Contact Info) Description 12/04/2020 Telephone [facility] Surgery [address] [place] [address] Advanced Medicine 5th [place] [address] [place] [address] Jessica Herrera Social History Tobacco Use Types Packs/Day Years Used Date Smoking Tobacco: Former Smokeless Tobacco: Never Comments Unknown Sex and Gender Information Value Date Recorded Sex Assigned at Not on file Legal Sex Female 5:29 AM TECHNOLOGY APPLICATIONS ENGINEER Gender Identity Female 11/24/2020 9:11 AM CDT Sexual Orientation Straight 11/24/2020 9: 11 AM CDT documented as of this encounter Plan of Treatment Not on file documented as of this encounter Visit Diagnoses Not on filedocumented in this encounter Care Teams Broke Handler Relationship Specialty Start Date End Date Eligio Rutledge MD PCP - General 05/06/17 documented as of this encounter
--- OUTSIDE RECORDS SUMMARY | 2024-10-08 15:07 | XMS_ITS | Clinical Summary ---
Author Organization [facility] Address [address] [place] [address] Care Team Providers Care Surgical Services Director Name Role Phone Benita Maxwell MD Unavailable [phone] Eligio Rutledge MD Primary Care Provider [phone] Source Comments [facility],non-owned Affiliates and Associated Physician Practices is amultiple site organization consisting of ambulatory clinics and hospital sitesin [place], [place], [place] and [place]. This disclosure is being madepursuant to the Care Everywhere program and may not contain all information available regarding this patient. Last updated 18.[facility] Allergies Active Allergy Reactions Criticality Noted Date [...] Relation Name Comments Diabetes Brother Diabetes Mother CO<55(male) Neg Hx CO<65(female) Neg Hx Relation Name Status Comments Brother Mother Social History Tobacco Use Types Packs/Day Years Used Date Smoking Tobacco: Never Smokeless Tobacco: Never Alcohol Use Standard Drinks/Week Comments No 0 (1 standard drink = 0.6 oz pur e alcohol) Comments No Sex and Gender Information Value Date Recorded Sex Assigned at Not on file Legal Sex Female 5:58 AM PREASSEMBLER PRINTED CIRCUIT BOARD Gender Identity Not on file Sexual Orientation [...] URINE RANDOM PANEL Routine 03/23/2012 9:43 AM PREASSEMBLER PRINTED CIRCUIT BOARD Type II or unspecified type diabetes mellitus [...] PM CDT Narrative Resulting Agency Comment [facility] [address] [facility] [id number] Beniat Maxwell MD LAB - CHEMISTRY ORDERABLES nal Result [facility] ACCOUNT BILL [address] [place] [address] * (ABNORMAL) COMPREHENSIVE METABOLIC PANEL (09/25/2012 9:15 [...] PM CDT Narrative Resulting Agency Comment [facility] [address] [facility] [id number] Benita Maxwell MD LAB - CHEMISTRY ORDERABLES Fi nal Result Performing Organization Address City/[facility] [[email or web address]] Co de Phone Number [facility] ACCOUNT BILL [address] [place] [address] * (ABNORMAL) MICROALB/CREAT RATIO URINE RANDOM PANEL (03/23/2012 9:43 AM PREASSEMBLER PRINTED CIRCUIT BOARD) Creatinine 24 Hour Urine 81.3 15.0 - 278.0 mg/dL [facility] ACCOUNT BILL Microalbumin Urine 136.3(H) 0.0 - 17.0 ug/mL [facility] ACCOUNT BILL Microalbumin/Crea tinine Ratio 167.7(H) 0.0 - 30.0 mg/g creat [facility] ACCOUNT BILL Urine specimen (specimen) URINE SPECIMEN OBTAINED BY CLEAN CATCH PROCEDURE / Unknown 03/23/2012 9:43 AM PREASSEMBLER PRINTED CIRCUIT BOARD 03/23/2012 12:46 PM PREASSEMBLER PRINTED CIRCUIT BOARD Narrative Resulting Agency Comment [facility] [address] [facility] [phone] Benita Maxwell MD LAB - URINE CHEMISTRY ORDERAB LES Final Result Performing Organization Address City/[facility]/ZIP Co de Phone Number [facility] ACCOUNT BILL [address] [place] [address] from Last 3 Months or Most Recently Relevant to Health Maintenance Care Teams Surgical Services Director Relationship Specialty Start Date End Date Eligio Rutledge MD [address] [place] [phone] PCP - General Internal Medicine 03/22/12 Benita Maxwell MD [address] [phone] Endocrinology 03/21/12
== END 2024-10-08 15:45 | disposition home or self-care (01) ==
PROVIDERS: Emergency Provider Emergency Medicine; PCP Internal Medicine
DX: S61.412A Laceration without foreign body of left hand, initial encounter (principal); W26.0XXA Contact with knife, initial encounter; Z23 Encounter for immunization
CPT/HCPCS: 12002; 90471; 90715; 99282

== ENCOUNTER 2024-11-12 07:48 | Outpatient (CLI) | payer MEDICARE, BC, SELFPAY ==
--- NOTE | ~2024-11-12 | MR_ITS ---
MRI of the lumbar spine Clinical History: Radiculopathy Technique: Axial T2-weighted images, and sagittal T1-weighted, T2-weighted, and and T2 fat-sat images were acquired. COMPARISON: 09/24/2022 Findings: No fracture seen. There is 5 mm anterolisthesis of L4 over L5. No suspicious bone marrow si gnal reality seen. At L1-L2, there is no significant disc bulge or herniation. There is moderate facet arthropathy. No c entral canal stenosis or neural foraminal narrowing. At L2-L3, there is moderate degenerative disc narrowing. Diffuse disc bulge and advanced facet arthro chai result in severe spinal canal stenosis/thecal sac compression. There is preservation of the javier ral foramina. At L3-L4, there is moderate degenerative disc narrowing. Diffuse disc bulge and severe facet arthropa thy result in severe spinal canal stenosis/thecal sac compression. There is moderate bilateral neural foraminal narrowing. At L4-L5, there is diffuse disc bulge/uncovering with severe facet arthropathy, resulting in severe s nancy canal stenosis/thecal sac compression. There is severe bilateral neural foraminal caliber other caballero. At L5-S1, there is minimal disc bulge with mild to moderate facet arthropathy. No central canal steno sis. There is minimal bilateral neural foraminal narrowing. Paravertebral soft tissues are unremarkable.. Impression: Severe degenerative spondylosis, especially at L2-L3, L3-L4, L4-L5, as detailed above. 5 mm anterolisthesis of L4 over L5. Reviewed, dictated and finalized at [facility]. Impression: Severe degenerative spondylosis, especially at L2-L3, L3-L4, L4-L5, as detailed above. 5 mm anterolisthesis of L4 over L5.
== END 2024-11-12 07:49 | disposition home or self-care (01) ==
LOC: MICIMG 07:49
PROVIDERS: PCP Internal Medicine; Visit Provider Nurse Practitioner Family
DX: M47.26 Other spondylosis with radiculopathy, lumbar region (principal)
CPT/HCPCS: 72148

== ENCOUNTER 2025-04-10 10:17 | Outpatient (CLI) | payer MEDICARE, BC, SELFPAY ==
--- NOTE | ~2025-04-10 | XR_ITS ---
EXAMINATION: [id number], 04/10/2025 10:30 [employer] HISTORY: L knee pain COMPARISON: No comparisons available. Findings: No acute fracture or malalignment. Severe tricompartmental degenerative changes with small effusion and probable subcentimeter calcified loose bodies Soft tissues unremarkable. Impression: No acute fracture or malalignment. Reviewed, dictated and finalized at location [facility] [employer] Impression: No acute fracture or malalignment.
== END 2025-04-10 10:18 | disposition home or self-care (01) ==
LOC: MICIMG 10:20
PROVIDERS: PCP Internal Medicine; Visit Provider Nurse Practitioner Family
DX: M25.562 Pain in left knee (principal)
CPT/HCPCS: 73560